=== PATIENT | male | born 1950 | race Caucasian/White ===

== ENCOUNTER 2025-02-21 01:48 | Day surgery (SDC) | payer MEDICARE, SELFPAY ==
--- OUTSIDE RECORDS SUMMARY | 2024-05-01 04:00 | XMS_ITS ---
Author Organization [facility] dicine Address [address] [place] [address] Care Team Providers Care Slitting And Shipping Supervisor Name Role Phone Dr. Martha Gifford Primary Care Provider [phone] Migration, Provider Unavailable Unavailable Allergies Allergen (clinical drug ingredient) Drug/Non Drug Allergy documented on EMR Reaction Allergy Type Onset Date Status ezetimibe Zetia Unknown Drug Allergy 02/12/2021 Active Penicillin Unknown Drug Allergy 02/12/2021 Activ e REASON FOR VISIT EMR-Victor Hugo Medications Medication SIG (Take, Route, Frequency, Duration) Notes Start Date End Date Status Niacin 500 MG Tablet 3 Oral every day; Duration: 0 02/13/2021 Active Krill Oil 1,358-092-56-50 mg Capsule 1 Oral two times a day; Duration: 0 *Pick strength-form from [employer] for eRX* 02/13/2021 Active Lisinopril 20 MG Tablet 1 Oral every day; Duration: 90 01/29/2024 07/26/2024 Active Carvedilol 6.25 MG Tablet Oral; Duration: 90 04/27/2024 07/25/2024 Active Multi-Vitamin - Tablet 1 Oral every day; Duration: 0 02/13/2021 Active Spiriva Respimat inhalation; Duration: 0 *Pick strength-form from [email or web address] for eRX* 08/14/2021 Active Ozempic (2 MG/DOSE) 8 MG/3ML Solution Pen-injector Subcutaneous; Duration: 84 04/22/2024 10/06/2024 Active Fluticasone Propionate 50 MCG/ACT Suspension 1 Nasal two times a day; Duration: 30 04/08/2024 07/06/2024 Active Aspirin Adult Low Strength 81 MG Tablet Delayed Release 1 Oral every day; Duration: 0 02/13/2021 Active Simvastatin 20 MG Tablet 1 Oral every day; Duration: 90 04/22/2024 10/18/2024 Active Social History Social History Additional Details Category Social Info Options Details Migrated Social History Migrated Social History Marital status: Encounters Encounter Location Date Provider Diagnosis [facility] [address] [place] [address] 05/01/2024 Provider Migration Plan Of Treatment Next Appt Details Provider Name:Dr. Martha bobby, 03/06/2025 01:30:00 PM, [address], [place], [address], [phone] Progress Notes * Leonel MACARIO LDOB:1950 (75 yo M)Acc No.[id number]:05/01/2024 Patient: Areli DEUTSCHLeonel Stephens Daniel :1950 A ge:74 Y S ex:Male Address:[address] [place] [id number] Subjective: * Chief Complaints: * E MR-Victor Hugo * Surgical History: appendectomy 09/2011 * Social History: M igrated Social History: M igrated Social History: Marital status:. * Medications: T akingLisinopril 20 MG Tablet 1 Oral every day , stop date 07/26/2024Niacin 500 MG Tablet 3 Oral every day Spiriva Respimat inhalation , Notes to Pharmacist: *Pick strength-form from [employer] for eRX*Fluticasone Propionate 50 MCG/ACT Suspension 1 Nasal two times a day , stop date 07/06/2024Simvastatin 20 MG Tablet 1 Oral every day , stop date 10/18/2024spirin Adult Low Strength 81 MG Tablet Delayed Release 1 Oral every day Carvedilol 6.25 MG Tablet Oral , stop date 07/25/2024Multi-Vitamin - Tablet 1 Oral every day Krill Oil 1,688-029-81-50 mg Capsule 1 Oral two times a day , Notes to Pharmacist: *Pick strength-form from [employer] for eRX*Ozempic (2 MG/DOSE) 8 MG/3ML Solution Pen-injector Subcutaneous , stop date 10/06/2024Taking Lisinopril 20 MG Tablet 1 Oral every day , stop date 07/26/2024Taking Niacin 500 MG Tablet 3 Oral every day Taking Spiriva Respimat inhalation , Notes to Pharmacist: *Pick strength-form from [facility] for eRX*Taking Fluticasone Propionate 50 MCG/ACT Suspension 1 Nasal two times a day , stop date 07/06/2024Taking Simvastatin 20 MG Tablet 1 Oral every day , stop date 10/18/2024Taking Aspirin Adult Low Strength 81 MG Tablet Delayed Release 1 Oral every day Taking Carvedilol 6.25 MG Tablet Oral , stop date 07/25/2024Taking Multi-Vitamin - Tablet 1 Oral every day Taking Krill Oil 1,587-643-73-50 mg Capsule 1 Oral two times a day , Notes to Pharmacist: *Pick strength-form from [facility] for eRX*Taking Ozempic (2 MG/DOSE) 8 MG/3ML Solution Pen-injector Subcutaneous , stop date 10/06/2024 * Allergies: Z etia: Allergy - Onset Date 02/12/2021enicillin: Allergy - Onset Date 02/12/2021 Objective: Past Vitals:* 06/15/2023 BP: 124/74 mm Hg, HR: 94 /mi n, Oxygen sat %: 98 %, Wt: 178.38 lbs, Wt-k.91 kg * 02/12/2023 BP: 112/70 mm Hg, HR: 102 /m in, Oxygen sat %: 97 %, Wt: 181.00 lbs, Wt-k.10 kg * * Date:
[2025-02-20 16:03] VITALS: BMI 27.4
[2025-02-21] VITALS (8 sets, daily range): BP systolic 134–189; BP diastolic 82–111; PULSE 84–105; RESP 12–20; TEMP 36.8; O2SAT 94–100; BMI 27.4
--- OUTSIDE RECORDS SUMMARY | 2025-02-21 01:51 | XMS_ITS | Patient Health Record ---
Author Organization [facility] Address [address] [place] [address] Care Team Providers Care Voip Network Technician Name Role Phone Dr. Martha Gifford Primary Care Provider [phone] Juany Castillo Unavailable [phone] Migration, Provider Unavailable Unavailable Allergies Allergen (clinical drug ingredient) Drug/Non Drug Allergy documented on EMR Reaction Allergy Type Onset Date Status ezetimibe Zetia Unknown Drug Allergy 02/12/2021 Active Penicillin Unknown Drug Allergy 02/12/2021 Activ e Results Component Value Reference Range Flag Notes Hemoglobin A1c {Glycosylated } Reviewed date:03/04/2024 12:00:00 AM Interpretation: Performing Lab: Notes/Report: eAvg Glucose 157 mg/dL Hemoglobin A1c 7.1 % Magnesium Reviewed date:03/04/2024 12:00:00 AM Interpretation: Performing Lab: Notes/Report: Magnesium Lvl 1.5 mg/dL PSA, Diagnostic Reviewed date:03/04/2024 12:00:00 AM Interpretation: Performing Lab: Notes/Report: PSA Total 4.67 ng/mL Patient Health Questionnaire (PHQ9) Reviewed date:03/12/2024 12:00:00 AM Interpretation: Performing Lab: Notes/Report: Feeling bad about yourself or that you are a failure or have let yourself or your family down 0 Feeling down, depressed, or hopeless 0 Feeling tired or having little energy 1 If you checked off any problems, how difficult Not difficult at all have these problems made it for you to do your work, take care of things at home, or get along with other people? 0 Little interest or pleasure in doing things 0 Moving or speaking so slowly that other people could have noticed or the opposite being so figety or restless that you have been moving around a lot more than usual 0 Poor appetite or overeating 0 Thoughts that you would be better off , or of hurting yourself 0 Trouble concentrating on things, such as reading the newspaper or watching television 0 Trouble falling or staying asleep, or sleeping too much 0 Outreach UA POC Reviewed date:04/13/2024 12:00:00 AM Interpretation: Performing Lab: Notes/Report: UA Appear Turbid UA Bili Negative UA Blood Trace-intact UA Color Yellow UA Glucose Negative UA Ketones Trace UA Leuk Est 1+ UA Nitrite Positive UA Perform Location [place]CT [place] UA pH 5.5 UA Protein 1+ UA Spec Grav 1.025 UA Urobilinogen 0.2 Urine Culture Reviewed date:04/13/2024 12:00:00 AM Interpretation: Performing Lab: Notes/Report: C Urine See Below Hemoglobin A1c {Glycosylated } Reviewed date:09/26/2024 10:34:27 PM Interpretation: Performing Lab: Notes/Report: Test Performed by: [place] [address] Geropsychologist: Dante Gomez DO Hemoglobin A1c 7.3 <=6.4 % H Hemoglobin A1C < 5.7% = Normal 5.7-6.4% = Increased risk for future diabetes >=6.5% = Diabetes eAvg Glucose 163 <=117 mg/dL H eAG Reference Range <117 mg/dL = Normal 117-137 mg/dL = Increased Risk For Future Diabetes >137 mg/dL = Diabetes Vitamin D 25 Hydroxy Reviewed date:09/26/2024 10:34:27 PM Interpretation: Performing Lab: Notes/Report: Test Performed by: [place] [address] Geropsychologist: Dante Gomez DO Vitamin D 25 OH 34 30-100 ng/mL Vitamin D25 Interpretation: Deficient: <= 20 ng/mL Insufficient: 21-29 ng/mL Sufficient: 30-100 ng/mL Upper Safety Limit: >100 ng/mL T4 Free Reviewed date:09/26/2024 10:34:27 PM Interpretation: Performing Lab: Notes/Report: Test Performed by: [facility] [address] [place] [id number] Geropsychologist: Dante Gomez, T4 Free 0.87 0.60-1.70 ng/dL CBC w Auto Diff Reviewed date:09/26/2024 10:34:27 PM Interpretation: Performing Lab: Notes/Report: Test Performed by: [facility] [place] [id number] Geropsychologist: Dante Gomez DO WBC 7.6 4.0-11.7 K/mcL RBC 4.55 4.28-5.56 x10*6/mcL Hgb 13.2 13.0-17.0 g/dL Hct 39.3 38.1-48.9 % MCV 86.4 83.4-98.1 fL MCH 29.1 27.0-34.2 pg MCHC 33.7 31.8-35.3 g/dL RDW 13.1 12.0-16.4 % Platelets 311 149-393 K/mcL MPV 9.4 7.0-11.0 fL Neutro Auto 66.3 45.3-79.0 % Lymph Auto 20.4 11.8-45.9 % [place] Auto 4.5 4.4-12.0 % Eosinophil Auto 7.9 0.0-6.3 % H Basophil Auto 0.9 0.2-1.6 % Neutro Absolute 5.1 2.4-8.4 x10*3/mcL Lymph Absolute 1.6 0.8-3.7 x10*3/mcL [place] Absolute 0.3 0.3-1.1 x10*3/mcL Eos Absolute 0.6 0.0-0.5 x10*3/mcL H Baso Absolute 0.1 0.0-0.1 x10*3/mcL Comprehensive Metabolic Pane l Reviewed date:09/26/2024 10:34:27 PM Interpretation: Performing Lab: Notes/Report: Test Performed by: [facility] [place] [id number] Geropsychologist: Dante Gomez DO Glucose Lvl 156 74-109 mg/dL H ADA risk stratification for diabetes <100 mg/dL = Normal 100-125 mg/dL = Increased risk for future diabetes >=126 mg/dL = Diabetes, if on more than one testing occasion BUN 20 7-25 mg/dL Creatinine Lvl 0.94 0.70-1.30 mg/dL eGFR CKD-EPI 85 >=90 mL/min/1.73 m2 L The CKD-EPI equation is validated in individuals 18 years of age and older. It is less accurate in patients with extremes of muscle mass, restriction of dietary protein, ingestion of creatine, extra-renal metabolism of creatinine, or treatment with medications that affect renal tubular creatinine secretion. GFR Categories in Chronic Kidney Disease (CKD) GFR GFR (mL/min/1.73 Category: square meters): Interpretation: G1 90 or greater Normal or high* G2 60-89 Mild decrease* G3a 45-59 Mild to moderate decrease G3b 30-44 Moderate to severe decrease G4 15-29 Severe decrease G5 14 or less Kidney failure *In the absence of evidence of kidney damage, neither GFR category G1 nor G2 fulfill the criteria for CKD (Kidney Int Suppl 2013;3:1-150) Calcium Lvl 10.3 8.6-10.3 mg/dL Sodium Lvl 138 136-145 mmol/L Potassium Lvl 4.7 3.5-5.1 mmol/L Chloride Lvl 103 98-107 mmol/L CO2 28 21-31 mmol/L Anion Gap 6.7 <=16.0 mmol/L Alk Phos 80 34-104 unit/L Bilirubin Total 0.4 0.3-1.0 mg/dL Albumin Lvl 4.1 3.5-5.2 g/dL Protein Total 6.4 6.4-8.9 g/dL Albumin/Globulin Ratio 1.7 1.1-2.5 ALT 14 7-52 unit/L AST 13 13-39 unit/L Lipid Panel {Chol, Trig, HDL , LDL} Reviewed date:09/26/2024 10:34:27 PM Interpretation: Performing Lab: Notes/Report: Test Performed by: Lola [address] [address] Geropsychologist: Dante Gomez DO Cholesterol Total 144 <=199 mg/dL Triglycerides 297 0-149 mg/dL H Triglyceride Reference Ranges: <150 mg/dL Normal 150 - 199 mg/dL Borderline High 200 - 499 mg/dL High >=500 mg/dL Very High LDL 46 <=100 mg/dL LDL Optimal: <100 Near or above optimal: 100-129 Borderline high: 130-159 High: 160-189 Very high: >=190 Coronary heart disease risk factors should be considered when determining LDL goals. Please refer to ATPIII guidelines for further information. If LDL is not calculated, please call the lab to add on the direct LDL methodology, if desired. HDL 39 23-92 mg/dL Non HDL Cholesterol 105 <=130 mg/dL Chol/HDL 4 0-5 Coronary Risk 27 Coronary Risk Factor - Male Dangerous Risk: <7 % High Risk: 7-15 % Average Risk: 15-25 % Below Average Risk: 25-37 % Coronary Risk Factor - Female Dangerous Risk: <12 % High Risk: 12-18 % Average Risk: 18-27 % Below Average Risk: 27-40 % Magnesium Reviewed date:09/26/2024 10:34:27 PM Interpretation: Performing Lab: Notes/Report: Test Performed by: [place] [address] Geropsychologist: Dante Gomez DO Magnesium Lvl 1.4 1.6-2.4 mg/dL L Thyroid Stimulating Hormone Reviewed date:09/26/2024 10:34:27 PM Interpretation: Performing Lab: Notes/Report: Test Performed by: [place] [id number] Geropsychologist: Dante Gomez DO TSH 1.85 0.45-5.33 mcIU/mL Vitamin B12 Reviewed date:09/26/2024 10:34:27 PM Interpretation: Performing Lab: Notes/Report: Test Performed by: [place] [address] Geropsychologist: Dante Gomez DO Vitamin B12 Lvl 245 180-914 pg/mL Vitamin B12 Interpretation: Normal Range: 180-914 pg/mL Indeterminate: 140-180 pg/mL Deficient: <140 pg/mL Hemoglobin A1c {Glycosylated } Reviewed date:12/26/2024 08:04:09 PM Interpretation: Performing Lab: Notes/Report: Test Performed by: [place] [id number] Geropsychologist: Dante Gomez DO Hemoglobin A1c 7.0 <=6.4 % H Hemoglobin A1C < 5.7% = Normal 5.7-6.4% = Increased risk for future diabetes >=6.5% = Diabetes eAvg Glucose 154 <=117 mg/dL H eAG Reference Range <117 mg/dL = Normal 117-137 mg/dL = Increased Risk For Future Diabetes >137 mg/dL = Diabetes Vitamin D 25 Hydroxy Reviewed date:12/26/2024 08:04:09 PM Interpretation: Performing Lab: Notes/Report: Test Performed by: [place] [address] Geropsychologist: Dante Gomez DO Vitamin D 25 OH 35 30-100 ng/mL Vitamin D25 Interpretation: Deficient: <= 20 ng/mL Insufficient: 21-29 ng/mL Sufficient: 30-100 ng/mL Upper Safety Limit: >100 ng/mL T4 Free Reviewed date:12/26/2024 08:04:09 PM Interpretation: Performing Lab: Notes/Report: Test Performed by: [place] [address] Geropsychologist: Dante Gomez DO T4 Free 0.96 0.60-1.70 ng/dL CBC w Auto Diff Reviewed date:12/26/2024 08:04:09 PM Interpretation: Performing Lab: Notes/Report: mbi #[id number] Test Performed by: [place] [address] Geropsychologist: Dante Gomez DO WBC 6.7 4.0-11.7 K/mcL RBC 4.54 4.28-5.56 x10*6/mcL Hgb 13.4 13.0-17.0 g/dL Hct 39.4 38.1-48.9 % MCV 86.8 83.4-98.1 fL MCH 29.5 27.0-34.2 pg MCHC 34.0 31.8-35.3 g/dL RDW 13.3 12.0-16.4 % Platelets 288 149-393 K/mcL MPV 9.2 7.0-11.0 fL Neutro Auto 60.5 45.3-79.0 % Lymph Auto 24.6 11.8-45.9 % [place] Auto 6.0 4.4-12.0 % Eosinophil Auto 8.2 0.0-6.3 % H Basophil Auto 0.7 0.2-1.6 % Neutro Absolute 4.1 2.4-8.4 x10*3/mcL Lymph Absolute 1.7 0.8-3.7 x10*3/mcL [place] Absolute 0.4 0.3-1.1 x10*3/mcL Eos Absolute 0.6 0.0-0.5 x10*3/mcL H Comprehensive Metabolic Pane l Reviewed date:12/26/2024 08:04:09 PM Interpretation: Performing Lab: Notes/Report: Test Performed by: [place] [address] Geropsychologist: Dante Gomez DO Glucose Lvl 138 74-109 mg/dL H ADA risk stratification for diabetes <100 mg/dL = Normal 100-125 mg/dL = Increased risk for future diabetes >=126 mg/dL = Diabetes, if on more than one testing occasion BUN 17 7-25 mg/dL Creatinine Lvl 0.84 0.70-1.30 mg/dL eGFR CKD-EPI >90 >=90 mL/min/1.73 m2 The CKD-EPI equation is validated in individuals 18 years of age and older. It is less accurate in patients with extremes of muscle mass, restriction of dietary protein, ingestion of creatine, extra-renal metabolism of creatinine, or treatment with medications that affect renal tubular creatinine secretion. GFR Categories in Chronic Kidney Disease (CKD) GFR GFR (mL/min/1.73 Category: square meters): Interpretation: G1 90 or greater Normal or high* G2 60-89 Mild decrease* G3a 45-59 Mild to moderate decrease G3b 30-44 Moderate to severe decrease G4 15-29 Severe decrease G5 14 or less Kidney failure *In the absence of evidence of kidney damage, neither GFR category G1 nor G2 fulfill the criteria for CKD (Kidney Int Suppl 2013;3:1-150) Calcium Lvl 10.6 8.6-10.3 mg/dL H Sodium Lvl 138 136-145 mmol/L Potassium Lvl 5.0 3.5-5.1 mmol/L Chloride Lvl 102 98-107 mmol/L CO2 29 21-31 mmol/L Anion Gap 6.6 <=16.0 mmol/L Alk Phos 70 34-104 unit/L Bilirubin Total 0.5 0.3-1.0 mg/dL Albumin Lvl 4.3 3.5-5.2 g/dL Protein Total 6.2 6.4-8.9 g/dL L Albumin/Globulin Ratio 2.3 1.1-2.5 ALT 18 7-52 unit/L AST 16 13-39 unit/L Lipid Panel {Chol, Trig, HDL , LDL} Reviewed date:12/26/2024 08:04:09 PM Interpretation: Performing Lab: Notes/Report: Test Performed by: [place] [address] Geropsychologist: Dante Gomez DO Cholesterol Total 128 <=199 mg/dL Triglycerides 200 0-149 mg/dL H Triglyceride Reference Ranges: <150 mg/dL Normal 150 - 199 mg/dL Borderline High 200 - 499 mg/dL High >=500 mg/dL Very High LDL 53 <=100 mg/dL LDL Optimal: <100 Near or above optimal: 100-129 Borderline high: 130-159 High: 160-189 Very high: >=190 Coronary heart disease risk factors should be considered when determining LDL goals. Please refer to ATPIII guidelines for further information. If LDL is not calculated, please call the lab to add on the direct LDL methodology, if desired. HDL 35 23-92 mg/dL Non HDL Cholesterol 93 <=130 mg/dL Chol/HDL 4 0-5 Magnesium Reviewed date:12/26/2024 08:04:09 PM Interpretation: Performing Lab: Notes/Report: Test Performed by: [address] [address] Geropsychologist: Dante Gomez DO Magnesium Lvl 1.4 1.6-2.4 mg/dL L Thyroid Stimulating Hormone Reviewed date:12/26/2024 08:04:09 PM Interpretation: Performing Lab: Notes/Report: Test Performed by: [address] [address] Geropsychologist: Dante Gomez DO TSH 1.93 0.45-5.33 mcIU/mL Vitamin B12 Reviewed date:12/26/2024 08:04:09 PM Interpretation: Performing Lab: Notes/Report: Test Performed by: [address] [address] Geropsychologist: Dante Gomez DO Vitamin B12 Lvl 388 180-914 pg/mL Vitamin B12 Interpretation: Normal Range: 180-914 pg/mL Indeterminate: 140-180 pg/mL Deficient: <140 pg/mL CBC w/ Diff Reviewed date:03/04/2024 12:00:00 AM Interpretation: Performing Lab: Notes/Report: Baso Absolute 0.1 x10*3/mcL Basophil Auto 0.8 % Eos Absolute 0.7 x10*3/mcL Eosinophil Auto 8.6 % Hct 43.9 % Hgb 14.5 g/dL Lymph Absolute 1.8 x10*3/mcL Lymph Auto 22.2 % MCH 29.4 pg MCHC 33.1 g/dL MCV 88.9 fL [place] Absolute 0.4 x10*3/mcL [place] Auto 5.0 % MPV 9.1 fL Neutro Absolute 5.3 x10*3/mcL Neutro Auto 63.4 % Platelets 330 K/mcL RBC 4.94 x10*6/mcL RDW 12.9 % WBC 8.3 K/mcL Comprehensive Metabolic Pane l Reviewed date:03/04/2024 12:00:00 AM Interpretation: Performing Lab: Notes/Report: Albumin Lvl 4.4 g/dL Albumin/Globulin Ratio 1.7 Alk Phos 75 unit/L ALT 25 unit/L ANION GAP 6.8 mmol/L AST 20 unit/L Bilirubin Total 0.5 mg/dL BUN 17 mg/dL Calcium Lvl 11.0 mg/dL Chloride Lvl 99 mmol/L CO2 31 mmol/L Creatinine Lvl 0.85 mg/dL eGFR CKD-EPI >90 mL/min/1.73 m2 Glucose Lvl 143 mg/dL Potassium Lvl 5.2 mmol/L Protein Total 6.9 g/dL Sodium Lvl 137 mmol/L Lipid Panel {Chol, Trig, HDL , LDL} Reviewed date:03/04/2024 12:00:00 AM Interpretation: Performing Lab: Notes/Report: Chol/HDL 4 Cholesterol Total 163 mg/dL Coronary Risk 28 % HDL 45 mg/dL LDL 69 mg/dL NON HDL CHOLESTEROL 118 mg/dL Triglycerides 243 mg/dL Microalbumin Quantitative wi th Creatinine Reviewed date:03/04/2024 12:00:00 AM Interpretation: Performing Lab: Notes/Report: Creatinine Ur 51 mg/dL Mcralb/Creat Ratio 125.3 mcg/mg Microalbumin Ur 63.9 mg/L T4 Free Reviewed date:03/04/2024 12:00:00 AM Interpretation: Performing Lab: Notes/Report: T4 Free 0.85 ng/dL Thyroid Stimulating Hormone Reviewed date:03/04/2024 12:00:00 AM Interpretation: Performing Lab: Notes/Report: TSH 1.54 mcIU/mL Vitamin B12 Reviewed date:03/04/2024 12:00:00 AM Interpretation: Performing Lab: Notes/Report: Vitamin B12 Lvl 290 pg/mL Vitamin D 25 Hydroxy Reviewed date:03/04/2024 12:00:00 AM Interpretation: Performing Lab: Notes/Report: Vitamin D 25 OH 31 ng/mL Echocardiogram Reviewed date:01/23/2025 10:51:00 AM Interpretation: Performing Lab: Notes/Report: Magnesium Reviewed date:01/13/2025 12:59:32 PM Interpretation: Performing Lab: Notes/Report: Test Performed by: [place] [address] Geropsychologist: Dante Gomez DO Magnesium Lvl 1.6 1.6-2.4 mg/dL Reason For Referral No Information Medications Medication SIG (Take, Route, Frequency, Duration) Notes Start Date End Date Status Lisinopril 20 MG Tablet 1 tablet Orally Once a day; Duration: 90 days Active Carvedilol 6.25 MG Tablet 1.5 tablet Orally Twice a day; Duration: 90 days Active metFORMIN HCl ER 500 MG Tablet Extended Release 24 Hour 2 tablets Orally twice a day; Duration: 90 days 09/29/2024 Active Krill Oil 1,355-003-84-50 mg Capsule 1 Oral two times a day; Duration: 0 *Pick strength-form from [email or web address] for eRX* 02/13/2021 Active Multi-Vitamin - Tablet 1 Oral every day; Duration: 0 02/13/2021 Active Fluticasone Propionate 50 MCG/ACT Suspension SPRAY 1 SPRAY INTO EACH NOSTRIL TWICE A DAY; Duration: 90 Active Aspirin Adult Low Strength 81 MG Tablet Delayed Release 1 Oral every day; Duration: 0 02/13/2021 Active Spiriva Respimat inhalation; Duration : 0 *Pick strength-form from [email or web address] for eRX* 08/14/2021 Active Niacin 500 MG Tablet 3 Oral every day; Duration: 0 02/13/2021 Active Simvastatin 20 MG Tablet 1 tablet in the evening Orally Once a day; Duration: 90 days Active Ozempic (2 MG/DOSE) 8 MG/3ML Solution Pen-injector 2 mg Subcutaneous weekly; Duration: 84 days Active Magnesium Oxide 400 MG Tablet 1 tablet with food Orally 3 times a day; Duration: 90 days increase to BID, please update for next RF. 09/29/2024 Active Famotidine 40 MG Tablet 1 tablet Orally Once a day; Duration: 90 days 01/05/2025 Active Immunizations Vaccine Route Administration Date Status Comme nts Influenza, high dose seasonal IM Intramuscular 03/08/2024 Administered ,sourcename : N ew immunization record ,immstatus : Complete Influenza, high-dose seasonal, quadrivalent, preservative free >65 yrs Unknown 03/25/2017 Administered Source VFC Code: : Influenza, high-dose seasonal, quadrivalent, preservative free >65 yrs IM Intramuscular 03/15/2018 Administered Source VFC Code: : Influenza, high-dose seasonal, quadrivalent, preservative free >65 yrs IM Intramuscular 03/24/2019 Administered Source VFC Code: : Influenza, high-dose seasonal, quadrivalent, preservative free >65 yrs IM Intramuscular 03/14/2021 Administered ,sourcename : N ew immunization record ,immstatus : Complete Influenza, high-dose seasonal, quadrivalent, preservative free >65 yrs IM Intramuscular 03/22/2022 Administered ,sourcename : New immunization record ,immstatus : Complete Source VFC Code: : Influenza, high-dose seasonal, quadrivalent, preservative free >65 yrs IM Intramuscular 03/07/2023 Administered ,sourcename : N ew immunization record ,immstatus : Complete Influenza, quadrivalent (IIV4), split virus, 6-35 months dosage IM Intramuscular 03/26/2016 Administered Source VFC Code: : Influenza, seasonal, injectable, preservative free, 3 yrs and above IM Intramuscular 03/16/2013 Administered Source VFC Code: : Moderna Covid-19 Vaccine 1st dose IM Intramuscular 07/06/2020 Administered Source VFC Code: : Moderna Covid-19 Vaccine 1st dose Unknown 07/29/2020 Administered ,sourcename : Historical information -source unspecified Source VFC Code: : Moderna Covid-19 Vaccine 1st dose IM Intramuscular 08/03/2020 Administered Source VFC Code: : Moderna Covid-19 Vaccine 1st dose Unknown 08/24/2020 Administered ,sourcename : Historical information -source unspecified Source VFC Code: : Moderna Covid-19 Vaccine 1st dose Unknown 04/05/2021 Administered Source VFC Code: : Pfizer-Biontech Covid-19 Vaccine 1st dose IM Intramuscular 03/08/2024 Administered ,sourcename : N ew immunization record ,immstatus : Complete Pneumococcal conjugate PCV 13 IM Intramuscular 03/26/2016 Administered Source VFC Code: : Pneumococcal polysaccharide PPV23 IM Intramuscular 08/22/2013 Administered Source VFC Code: : Pneumococcal polysaccharide PPV23 IM Intramuscular 02/16/2020 Administered Source VFC Code: : RSV-MAb (Respiratory syncytial virus immune globulin) IM Intramuscular 05/20/2023 Administered ,sourcename : New immunization record ,immstatus : Complete Tdap Unknown 02/20/2014 Administered ,sourcename : Historical information -from other registry Source VFC Code: : Tdap IM Intramuscular 03/09/2024 Administered ,sourc ename : New immunization record ,immstatus : Complete Zoster Unknown 06/27/2014 Administered ,sourcename : Historical information -from other registry Source VFC Code: : Zoster IM Intramuscular 08/06/2022 Administered ,sourc ename : New immunization record ,immstatus : Complete Zoster IM Intramuscular 02/12/2023 Administered ,sourc ename : New immunization record ,immstatus : Complete Social History Tobacco Use: Social History Observation Description Date Details (start date - stop date) Never Smoker NA - NA Social History Household: Social Info Question Answer Notes Household Marital status: Tobacco Use: Social Info Question Answer Notes Tobacco Control (Standard) Tobacco use: Nonsmoker Additional Findings: Tobacco non-user Current no nsmoker Additional Details Category Social Info Options Details Drug/Alcohol: Do you drink alcohol? 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) 08/07/19 Active confirmed Problem Type II diabetes mellitus without complication (403336772) Type 2 diabetes mellitus without complications (E11.9) Active confirmed Problem Vitamin B deficiency (98049815) Deficiency of other specified B group vitamins (E53.8) 06/23/20 23 Active confirmed Problem Mixed hyperlipidemia (963465714) Mixed hyperlipidemia (E78.2) 02/13/20 22 Active confirmed Problem Hyperlipidemia (41627242) Hyperlipidemia, unspecified (E78.5) 02/25/20 23 Active confirmed Problem Hypomagnesemia (358042424) Hypomagnesemia (E83.42) 03/09/20 24 Active confirmed Problem Hypercalcemia (72189472) Hypercalcemia (E83.52) 02/17/20 23 Active confirmed Problem Male erectile disorder (295321049) Male erectile disorder (F52.21) 02/25/20 23 Active confirmed Problem Essential hypertension (59557896) Essential (primary) hypertension (I10) 02/14/20 21 Active confirmed Problem Aortic valve disorder (0985336) Nonrheumatic aortic (valve) stenosis (I35.0) 03/09/20 24 Active confirmed Problem Ventricular premature depolarization (844311027) Ventricular premature depolarization (I49.3) 06/15/19 Active confirmed Problem Cardiac arrhythmia (246353729) Cardiac arrhythmia, unspecified (I49.9) 02/13/20 23 Active confirmed Problem Allergic rhinitis (76979860) Allergic rhinitis, unspecified (J30.9) 02/14/20 21 Active confirmed Problem Gastro-esophageal reflux disease without esophagitis (556051216) Gastro-esophageal reflux disease without esophagitis (K21.9) 02/13/20 22 Active confirmed Problem Polyp of colon (68285037) Polyp of colon (K63.5) 02/13/20 22 Active confirmed Problem Localized, primary osteoarthritis of the hand (111248681) Primary osteoarthritis, 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2) 08/15/19 22 Active confirmed Problem Amnesia (04926848) Other amnesia (R41.3) 08/07/19 23 Active confirmed Problem Proteinuria (67521934) Proteinuria, unspecified (R80.9) 08/07/19 23 Active confirmed Problem Adult health examination (193519301) Encounter for general adult medical examination without abnormal findings (Z00.00) 02/25/20 23 Active confirmed Problem Screening for malignant neoplasm of colon (465652728) Encounter for screening for malignant neoplasm of colon (Z12.11) 02/13/20 22 Active confirmed Problem History of asbestos exposure (221268403) Contact with and (suspected) exposure to asbestos (Z77.090) 03/28/20 21 Active confirmed Problem Elevated PSA (623099942) Elevated prostate specific antigen [PSA] (R97.20) 08/15/19 22 Active confirmed Problem Body mass index 25-29 - overweight (696667830) Body mass index (BMI) 28.0-28.9, adult (Z68.28) 02/25/20 23 Active confirmed Problem Enlarged prostate (320261065) Enlarged prostate without lower urinary tract symptoms (N40.0) 02/25/20 23 Active confirmed Problem Vitamin D deficiency (47675303) Vitamin D deficiency (E55.9) Active confirmed Problem Essential hypertension (70647384) Essential hypertension (I10) Active confirmed Problem Allergic rhinitis (12008582) Chronic allergic rhinitis (J30.9) Active confirmed Problem Polyneuropathy due to type 2 diabetes mellitus (122130706) 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) Active confirmed Problem Grade I diastoli c dysfunction (I51.89) Active confirmed Echo 2023 Problem Aortic valve disorder (3625462) Moderate aortic stenosis (I35.0) Active confirmed Echo 2023 Vital Signs Heart Rate 94 /min 01/05/2025 Temperature 98.0 degrees Fahrenheit 01/05/2025 Respiratory Rate 18 /min 09/29/2024 Blood pressure diastolic 82 mm Hg 01/05/2025 Height-cm 168.15 cm 01/05/2025 Oximetry 97 % 01/05/2025 Weight-kg 79.42 kg 01/05/2025 Height 66.20 in 01/05/2025 Blood pressure systolic 138 mm Hg 01/05/2025 Weight 175.1 lbs 01/05/2025 BMI 28.09 kg/m2 01/05/2025 Encounters Encounter Location Date Provider Diagnosis [address] [address] 03/03/2024 Provider Migration Hyperlipidemia, unspecified E78.5 ; Elevated prostate specific antigen [PSA] R97.20 ; Gastro-esophageal reflux disease without esophagitis K21.9 ; Type 2 diabetes mellitus with other diabetic kidney complication E11.29 ; Essential (primary) hypertension I10 ; Encounter for general adult medical examination without abnormal findings Z00.00 and Deficiency of other specified B group vitamins E53.8 [place] [phone] 03/08/2024 Dr. Martha Gifford Encounter for immunization Z23 [address] [address] 03/09/2024 Dr. Martha Gifford Essential (primary) hypertension I10 ; Hypercalcemia E83.52 ; Elevated prostate specific antigen [PSA] R97.20 ; Encounter for general adult medical examination without abnormal findings Z00.00 ; Mixed hyperlipidemia E78.2 ; Cardiac murmur, unspecified R01.1 ; Encounter for immunization Z23 ; Type 2 diabetes mellitus with other diabetic kidney complication E11.29 ; Hypomagnesemia E83.42 ; Deficiency of other specified B group vitamins E53.8 and Nonrheumatic aortic (valve) stenosis I35.[address] [address] 04/08/2024 Dr. Martha Gifford Allergic rhinitis, unspecified J30.9 ; Cough, unspecified R05.9 ; Other specified symptoms and signs involving the circulatory and respiratory systems R09.89 and Acute prostatitis N41.[address] [address] 09/29/2024 Dr. 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 ; Essential (primary) hypertension I10 ; Vitamin B12 deficiency E53.8 ; Hypomagnesemia E83.42 ; Dizziness R42 ; Chronic allergic rhinitis J30.9 ; Moderate aortic stenosis I35.0 and Grade I diastolic dysfunction I51.[address] [address] 01/05/2025 Juany Castillo Type 2 diabetes mellitus with other diabetic kidney complication E11.29 ; Aortic valve stenosis, etiology of cardiac valve disease unspecified I35.0 ; Essential hypertension I10 ; Mixed hyperlipidemia E78.2 ; Allergic rhinitis, unspecified J30.9 ; Hypomagnesemia E83.42 and Gastro-esophageal reflux disease without esophagitis K21.[address] [address] 04/30/2024 Provider Migration [address] [address] 05/01/2024 Provider Migration [address] [address] 09/26/2024 Dr. Martha Gifford Hypomagnesemia E83.42 ; Hyperlipidemia, unspecified E78.5 ; Essential (primary) hypertension I10 ; Type 2 diabetes mellitus without complications E11.9 ; Deficiency of other specified B group vitamins E53.8 and Other intermediate project manager (current) drug therapy Z79.[address] [address] 12/26/2024 Juany Castillo Essential (primary) hypertension I10 ; Gastro-esophageal reflux disease without esophagitis K21.9 ; Mixed hyperlipidemia E78.2 ; Type 2 diabetes mellitus with other diabetic kidney complication E11.29 ; Vitamin B12 deficiency E53.8 and Vitamin D deficiency E55.[address] [address] 12/26/2024 Juany Castillo Assessments Encounter Date Diagnosis (ICD Code) Assessment Notes Treatment Notes Treatment Clinical Notes Section Notes 04/08/2024 Allergic rhinitis, unspecified (ICD-10 - J30.9) 04/08/2024 Acute prostatitis (ICD-10 - N41.0) 04/08/2024 Other specified symptoms and signs involving the circulatory and respiratory systems (ICD-10 - R09.89) 04/08/2024 Cough, unspecified (ICD-10 - R05.9) 03/09/2024 Type 2 diabetes mellitus with other diabetic kidney complication (ICD-10 - E11.29) 03/09/2024 Deficiency of other specified B group vitamins (ICD-10 - E53.8) 03/09/2024 Mixed hyperlipidemia (ICD-10 - E78.2) 03/09/2024 Hypomagnesemia (ICD-10 - E83.42) 03/09/2024 Hypercalcemia (ICD-10 - E83.52) 03/09/2024 Essential (primary) hypertension (ICD-10 - I10) 03/09/2024 Nonrheumatic aortic (valve) stenosis (ICD-10 - I35.0) 03/09/2024 Cardiac murmur, unspecified (ICD-10 - R01.1) 03/09/2024 Encounter for general adult medical examination without abnormal findings (ICD-10 - Z00.00) 03/09/2024 Encounter for immunization (ICD-10 - Z23) 03/09/2024 Elevated prostate specific antigen [PSA] (ICD-10 - R97.20) 03/08/2024 Encounter for immunization (ICD-10 - Z23) 01/05/2025 Type 2 diabetes mellitus with other diabetic kidney complication (ICD-10 - E11.29) - Type 2 diabetes mellitus, A1c improved from 7.3 to 7. - Patient has lost 7 lbs since last March. - Continue current Metformin and Ozempic. No changes recommended at this time. - Follow up with primary care as scheduled. 09/29/2024 Hyperlipidemia, unspecified (ICD-10 - E78.5) 09/29/2024 DM type 2 with diabetic peripheral neuropathy (ICD-10 - E11.42) 12/26/2024 Essential (primary) hypertension (ICD-10 - I10) 01/05/2025 Aortic valve stenosis, etiology of cardiac valve disease unspecified (ICD-10 - I35.0) -Mod/severe on last echo in 2023. Follows with cardiology every 6 months. Grade 3 murmur noted. Denies any cardiac limitations. Order was faxed for echo in September 2024, and have advised him to call and schedule it at his convenience. 09/26/2024 Hypomagnesemia (ICD-10 - E83.42) 03/03/2024 Type 2 diabetes mellitus with other diabetic kidney complication (ICD-10 - E11.29) 03/03/2024 Deficiency of other specified B group vitamins (ICD-10 - E53.8) 03/03/2024 Hyperlipidemia, unspecified (ICD-10 - E78.5) 03/03/2024 Essential (primary) hypertension (ICD-10 - I10) 03/03/2024 Gastro-esophageal reflux disease without esophagitis (ICD-10 - K21.9) 03/03/2024 Encounter for general adult medical examination without abnormal findings (ICD-10 - Z00.00) 03/03/2024 Elevated prostate specific antigen [PSA] (ICD-10 - R97.20) 09/26/2024 Hyperlipidemia, unspecified (ICD-10 - E78.5) 12/26/2024 Gastro-esophageal reflux disease without esophagitis (ICD-10 - K21.9) 01/05/2025 Essential hypertension (ICD-10 - I10) MEDICATIONS: No change to current medication regimen. Condition Stable.RECOMMEND ATIONS: adherence to a healthy diet and reduction of dietary salt intake. FOLLOWUP: Schedule a follow-up visit in 6 months 09/29/2024 Essential (primary) hypertension (ICD-10 - I10) 09/29/2024 Vitamin B12 deficiency (ICD-10 - E53.8) 12/26/2024 Mixed hyperlipidemia (ICD-10 - E78.2) 09/26/2024 Essential (primary) hypertension (ICD-10 - I10) 01/05/2025 Mixed hyperlipidemia (ICD-10 - E78.2) Trigs up some. Will continue atorvastatin and Krill oil MANAGEMENT: Condition stable. Continue same treatment plan. RECOMMENDATIONS: Maintain a regular exercise program. Reduce the amount of cholesterol and saturated fat in your diet. (Limiting red meats and dairy)FOLLOWUP: Return to clinic in 3-6 months for recheck. 12/26/2024 Type 2 diabetes mellitus with other diabetic kidney complication (ICD-10 - E11.29) 09/26/2024 Type 2 diabetes mellitus without complications (ICD-10 - E11.9) 09/29/2024 Hypomagnesemia (ICD-10 - E83.42) 01/05/2025 Allergic rhinitis, unspecified (ICD-10 - J30.9) -Takes an OTC allergy medication daily and uses Flonasa as needed. He also uses Spiriva as needed, He said it is for allergies. 12/26/2024 Vitamin B12 deficiency (ICD-10 - E53.8) 09/29/2024 Dizziness (ICD-10 - R42) 09/26/2024 Deficiency of other specified B group vitamins (ICD-10 - E53.8) 01/05/2025 Hypomagnesemia (ICD-10 - E83.42) -Mag was 1.4 last week. Magnesium increased from BID to TID and held pantoprazole for a week. Recheck mag level today. 09/26/2024 Other penitentiary (current) drug therapy (ICD-10 - Z79.899) 09/29/2024 Chronic allergic rhinitis (ICD-10 - J30.9) chronic allergy season, eos are high on CBC, patient reports flairing of allergies. 12/26/2024 Vitamin D deficiency (ICD-10 - E55.9) 01/05/2025 Gastro-esophageal reflux disease without esophagitis (ICD-10 - K21.9) -With holding pantoprazole he has had some GERD especially over night. Will stop pantoprazole completely and start famotidine. 09/29/2024 Moderate aortic stenosis (ICD-10 - I35.0) Echo 202309/29/2024 Grade I diastolic dysfunction (ICD-10 - I51.89) Echo 202309/29/2024 Other Repeat BMP and Mag in 1 month Low Magnesium - Magnesium level is low at 1.4, which requires treatment. - Increase magnesium oxide to 400 mg twice a day. Prescription for a 90-day supply to be sent to [facility]. Follow-up lab for magnesium and kidney function in one month. - Risks and side effects: Potential for heart rhythm issues and dizziness if magnesium remains low. Ensure adequate hydration to help with absorption and reduce dizziness. Low B12 - B12 level is low at 245, which may cause tiredness, numbness, tingling, and taste issues. - Recommend taking 2000 mcg of B12 over the counter daily. Monitor for improvement in energy levels and symptoms. DM2 with neuropathy - A1c is at 7.3, which is above the target goal. - Encourage dietary adjustments to improve blood sugar control. Consider repeating sugar labs in three months to monitor improvement. Six-month follow-up scheduled for March 06, 2025. Discuss potential medication adjustments if no improvement is seen. Dizziness - Dizziness may be related to blood pressure drop or dehydration, rather than sugar levels. - Ensure adequate hydration, especially when consuming caffeine. Monitor for any recurring episodes and report them. Elevated PSA hx - No recent MRI or biopsy of the prostate. Biopsy planned if condition does not improve. - Continue monitoring prostate health. Follow-up with Dr. Rubalcava after returning from [place] on November 12. Discuss any new symptoms or concerns. Aortic Stenosis - moderate on 2023 Echo - Needs monitored yearly. - Last in 2023 showed moderate, possibly severe aortic stenosis and grade 1 diastolic dysfunction. Medication - No confirmed diagnosis of COPD. Spiriva inhaler may have been prescribed for bronchitis or other temporary condition. - Discontinue Spiriva inhaler use. Monitor for any respiratory symptoms and report if they occur. Will see again in 3 months in office for Diabetes check up Plan Of Treatment Next Appt Details Provider Name:Dr. Martha bobby, 03/06/2025 01:30:00 PM, [address] [place] [address], [phone], [phone] Insurance Providers Payer Name Payer Address Payer Phone Subscriber Number Group Number Insured Name Patient Relationship to Insured Coverage Start Date Coverage End Date A[employer] Medicare Advantage [address] [place] [address] [id number] Leonel Macario Self - patient is the insured Medical (General) History Medical History History ICD Code Essential (primary) hypertension I10 Mixed hyperlipidemia E78.2 Gastro-esophageal reflux disease without esophagitis K21.9 Elevated prostate specific antigen [PSA] R97.20 Type 2 diabetes mellitus with other diab etic kidney complication E11.29 Body mass index (BMI) 28.0-28.9, adult Z 68.28 Enlarged prostate without lower urinary tract symptoms N40.0 Ventricular premature depolarization I49 .3 Cardiac murmur, unspecified R01.1 Surgical History Surgery Date(Month/Year) appendectomy 09/2011
--- OUTSIDE RECORDS SUMMARY | 2025-02-21 01:51 | XMS_ITS | Clinical Summary ---
Author Organization [place] [id number] [facility] Address [address] [place] [address] Care Team Providers Care Surgical Garment Fitter Name Role Phone Martha Gifford MD Primary Care Provider Allergies Active Allergy Reactions Criticality Noted Date Comments Penicillins Swelling,Other (See comments) Low Reaction: Swelling, Reaction: Medications carvediloL (COREG) 6.25 mg tablet TAKE 1&1/2 TABS BY MOUTH TWICE DAILY 1 Active carvedilol CR (COREG CR) 10 mg 24 hr capsule 2 times daily Ac tive ezetimibe (Zetia) 10 mg tablet daily Active lisinopriL (PRINIVIL,ZESTRIL ) 20 mg tablet daily Activ e metFORMIN XR (GLUCOPHAGE XR) 500 mg 24 hr tablet TAKE 2 TABLET(S) ORAL TWO TIMES A DAY 1 Active montelukast (SINGULAIR) 10 mg tablet Take 10 mg by mouth daily 2 Active niacin 500 mg tablet daily Active simvastatin (ZOCOR) 20 mg tablet 2 Active semaglutide (OZEMPIC) 0.25 mg or 0.5 mg(2 mg/1.5 mL) pen injector injection Inject under the skin Active glimepiride (AMARYL) 2 mg tabletIndications :type 2 diabetes mellitus Take 2 mg by mouth daily before breakfast Active magnesium gluconate 200 mg tabletIndications :hypomagnesemia 200 mg Acti ve FISH OIL-DHA-EPA ORAL Take by mouth Active multivit-min/foli c/vit K/lycop (MEN'S MULTIVITAMIN ORAL) Take by mouth Active aspirin 81 mg enteric coated tablet Take 81 mg by mouth daily Active tiotropium (Spiriva with HandiHaler) 18 mcg per inhalation capsule Place 1 puff (1 capsule total) into inhaler and inhale daily 30 capsule 11 2 Active albuterol HFA (ProAir HFA) 90 mcg/actuation inhaler Inhale 2 puffs every 4 (four) hours as needed for wheezing or shortness of breath 8.5 g 5 2 Active Active Problems Problem Noted Date Diagnosed Date COPD (chronic obstructive pulmonary disease) 07/[address] 07/31/2021 Asbestos exposure Encounters Date Type Department Care Team Description 02/10/2025 Telephone [facility] Cardiology [address] [place] [address] Jitendra Burrell MD from Last 3 Months Family History Medical History Relation Name Comments Liver disease Father No Known Problems Mother Relation Name Status Comments Father Mother Social History Tobacco Use Types Packs/Day Years Used Date Smoking Tobacco: Former Smokeless Tobacco: Former Personal Safety Answer Date Recorded Getting School Help Needed Not on file 08/14 Sex and Gender Information Value Date Recorded Sex Assigned at Not on file 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 Gender Identity Not on file Sexual Orientation Not on file Obstetrics History Last Filed Vital Signs Vital Sign Reading Time Taken Comments Blood Pressure 118/78 07/18/2021 12:43 PM MACHINE VENEER REPAIRER Pulse 96 07/18/2021 12:43 PM MACHINE VENEER REPAIRER Temperature 36.3 C (97.3 F) 07/18/2021 12:43 PM MACHINE VENEER REPAIRER Respiratory Rate 18 07/18/2021 12:43 PM MACHINE VENEER REPAIRER Oxygen Saturation 97% 07/18/2021 12:43 PM MACHINE VENEER REPAIRER Inhaled Oxygen Concentration - - Weight 86.2 kg (190 lb) 07/18/2021 12:43 PM MACHINE VENEER REPAIRER Height 170.2 cm (5' 7) 07/18/2021 12:43 PM MACHINE VENEER REPAIRER Body Mass Index 29.76 07/18/2021 12:43 PM MACHINE VENEER REPAIRER Plan of Treatment Health Maintenance Due Date Last Done Comments Colon Cancer Screening-Colonoscopy 1950 Depression Screening 1950 Fall Risk Assessment 1950 Hepatitis C Screening 1950 Hepatitis B Screening 1969 Zoster Vaccine (2 of 3) 08/22/2014 06/27/2014 Abdominal Aortic Aneurysm (A AA) Screen 01/23/2016 Well Visit 65+ 01/23/2016 DTaP/Tdap/Td Vaccine (2 - Td or Tdap) 02/21/2024 02/20/2014 Covid-19 Vaccine (4 - 2024- 6 season) 2025 04/05/2021, 08/03/2020, 07/06/2020 Influenza Vaccine (#1) 2025 , 03/24/2019, 03/15/2018, Additional history exists Pneumococcal vaccine 65+ Completed 020, 03/26/2016, 08/22/2013 Insurance MEDICARE [id number] MEDICARE Care Teams Surgical Garment Fitter Relationship Specialty Start Date End Date Martha Gifford MD [address] [place] [address] PCP - General Family Medicine 04/01/21
--- OUTSIDE RECORDS SUMMARY | 2025-02-21 01:51 | XMS_ITS | Patient Health Record ---
Author Organization [facility] Address [address] [facility] [address] [place] [address] Support Name Relationship Address Phone Leonel Macario Guarantor Unknown [phone] Reason For Referral No Information Plan Of Treatment No Information Insurance Providers Payer Name Payer Address Payer Phone Subscriber Number Group Number Insured Name Patient Relationship to Insured Coverage Start Date Coverage End Date Aetna Medicare [address] [place], [place] [id number] Leonel Macario Self - patient is the insured
--- NOTE | 2025-02-21 08:00 | ECHO_ITS ---
Patient Info Name: Leonel Macario Age: 75 years : 1950 Gender: Male Ht: 67 in Wt: 175 lbs BSA: 1.95 m2 Technical Quality: Good Exam Date: 02/21/2025 7:46 AM Patient Status: unknown Admit Date: 02/21/2025 Exam Type: CA echo transesophageal Drill Operator Automatic: Lianne Dove Attending Provider: Wicho Love DO Summary 1. Left ventricular chamber dimension is normal. 2. Left ventricular systolic function is normal with an ejection fraction of 60-65% by visual estimation. 3. There is mild concentric increased left ventricular wall thickness. 4. The left ventricular diastolic function is indeterminate as it was not assessed. 5. Left atrial chamber dimension is mildly enlarged. 6. There is severe aortic valve sclerosis. 7. There is severe aortic valve stenosis with valve area of 0.9 cm2 by planimetry. 8. There is mild mitral valve regurgitation. Procedure Details Risks/benefits/alternative to KEERTHI discuss with patient and he gave informed consent. He was monitored electrocardiographically, vital and pulse ox. He was in sinus rhythm, HR 70 bpm, BP 150/80 mmHg, pulse ox 100%. Cetacaine spray x1 to posterior oropharynx. KEERTHI probe advanced without incident into esophagus. Multiple images obtained. Agitated saline injection x 1. KEERTHI probe withdrawn and no blood noted on KEERTHI probe tip. He tolerated procedure well with no complications. Left Ventricle Left ventricular chamber dimension is normal. Left ventricular systolic function is normal with an ejection fraction of 60-65% by visual estimation. There is mild concentric increased left ventricular wall thickness. The left ventricular diastolic function is indeterminate as it was not assessed. Right Ventricle Right ventricular chamber dimension is normal. Right ventricular systolic function is normal. Left Atria Left atrial chamber dimension is mildly enlarged. Right Atria Right atrial chamber dimension is normal. Atrial Septum Intact interatrial septum visualized by 2D, color flow and agitated saline imaging. Agitated saline injection opacified right side cardiac chambers without shunt to left side cardiac chambers. Atrial Appendage There is no thrombus visualized in the left atrial appendage. Aortic Valve The aortic valve is bicuspid. There is severe aortic valve sclerosis. There is severe aortic valve stenosis with valve area of 0.9 cm2 by planimetry. There is no aortic valve regurgitation. Pulmonic Valve There is no pulmonic regurgitation. Mitral Valve There is no mitral valve stenosis. There is mild mitral valve regurgitation. Tricuspid Valve There is no tricuspid valve regurgitation. Pericardium/Pleural There is no pericardial effusion. Inferior Vena Cava Inferior vena cava is not well visualized. Aorta The aortic root size at the sinus of Valsalva is normal. Aortic Valve Name Value Normal AV 2D/MM AV Area (Planimetry) 0.9 cm2 Report Signatures
[2025-02-21] MEDS: MIDAZOLAM HCL (*CRX) 2 MG/2 ML VIAL IV PUSH (08:35)
[2025-02-21] MEDS: fentaNYL CITRATE INJ (*CRX) 100 MCG/2 ML VIAL 50 MCG IV PUSH (08:35)
== END 2025-02-21 09:32 | disposition home or self-care (01) ==
PROVIDERS: PCP Family Medicine; Visit Provider Internal Medicine Cardiovascular Disease
PROC: (CPT 93312; principal; 2025-02-21 08:00)
DX: I35.0 Nonrheumatic aortic (valve) stenosis (principal); I25.10 Atherosclerotic heart disease of native coronary artery without angina pectoris; I35.8 Other nonrheumatic aortic valve disorders; I34.0 Nonrheumatic mitral (valve) insufficiency; I48.0 Paroxysmal atrial fibrillation; E11.9 Type 2 diabetes mellitus without complications; I10 Essential (primary) hypertension; E78.5 Hyperlipidemia, unspecified; Z79.82 Long term (current) use of aspirin; Z79.84 Long term (current) use of oral hypoglycemic drugs; Z79.85 Long-term (current) use of injectable non-insulin antidiabetic drugs; Z98.890 Other specified postprocedural states; Z98.61 Coronary angioplasty status
CPT/HCPCS: 93312; 93320; 93325; J2250; J3010; J7040

== ENCOUNTER 2025-03-20 01:40 | Day surgery (SDC) | payer MEDICARE, SELFPAY ==
--- OUTSIDE RECORDS SUMMARY | 2024-04-08 05:30 | XMS_ITS ---
Author Organization [facility] dicine Address [address] [place] [phone] Care Team Providers Care Medical Imaging Technologist Name Role Phone Dr. Martha Gifford Primary Care Provider [phone] Results Component Value Reference Range Notes Urine Culture Reviewed date:04/13/2024 12:00:00 AM Interpretation: Performing Lab: Notes/Report: C Urine See Below Outreach UA POC Reviewed date:04/13/2024 12:00:00 AM Interpretation: Performing Lab: Notes/Report: UA Appear Turbid UA Bili Negative UA Blood Trace-intact UA Color Yellow UA Glucose Negative UA Ketones Trace UA Leuk Est 1+ UA Nitrite Positive UA Perform Location [facility]CT [place] UA pH 5.5 UA Protein 1+ UA Spec Grav 1.025 UA Urobilinogen 0.2 REASON FOR VISIT prostatitis Vital Signs Weight-kg 81.92 kg 04/08/2024 Weight 180.60 lbs 04/08/2024 Respiratory Rate 18 /min 04/08/2024 Heart Rate 101 /min 04/08/2024 Blood pressure systolic 112 mm Hg 04/08/20 24 Blood pressure diastolic 62 mm Hg 024 Temperature 97.9 degrees Fahrenheit 04/08/20 24 Oximetry 98 % 04/08/2024 Encounters Encounter Location Date Provider Diagnosis [address] [address] 04/08/2024 Dr. Martha Gifford Allergic rhinitis, unspecified J30.9 ; Cough, unspecified R05.9 ; Other specified symptoms and signs involving the circulatory and respiratory systems R09.89 and Acute prostatitis N41.0 Assessments Encounter Date Diagnosis (ICD Code) Assessment Notes Treatment Notes Treatment Clinical Notes Section Notes 04/08/2024 Allergic rhinitis, unspecified (ICD-10 - J30.9) 04/08/2024 Cough, unspecified (ICD-10 - R05.9) 04/08/2024 Other specified symptoms and signs involving the circulatory and respiratory systems (ICD-10 - R09.89) 04/08/2024 Acute prostatitis (ICD-10 - N41.0) Plan Of Treatment Next Appt Details Provider Name:Dr. Martha Hardy [facility], 03/23/2026 02:30:00 PM, [address] [employer] [facility], [place], [address], [phone] Progress Notes * Leonel MACARIO LDOB:1950 (75 yo M)Acc No.[id number]:04/08/2024 Patient: Leonel Reyes Provider: Aries Gifford MD :1950 A ge:74 Y S ex:Male Date:04/08/2024 Address:[address] [place], [place] [id number] Subjective: * Chief Complaints: * P rostatitis Objective: * Vitals: B P: 112/62 mm Hg, HR: 101 /min, RR: 18 /min, Temp: 97.9 F, Oxygen sat %: 98 %, Wt: 180.60 lbs, Wt-k.92 kg. Past Vitals:* 06/15/2023 BP: 124/74 mm Hg, HR: 94 /mi n, Oxygen sat %: 98 %, Wt: 178.38 lbs, Wt-k.91 kg * 02/12/2023 BP: 112/70 mm Hg, HR: 102 /m in, Oxygen sat %: 97 %, Wt: 181.00 lbs, Wt-k.10 kg Assessment: * Assessment: 1. A llergic rhinitis, unspecified - J30.9 S pecify :Src Diagnosis Name: Allergic rhinitis 2 . A cute prostatitis - N41.0 3 . O ther specified symptoms and signs involving the circulatory and respiratory systems - R09.89 S pecify :Src Diagnosis Name: Abnormal chest sounds 4 . C ough, unspecified - R05.9 S pecify :Src Diagnosis Name: Cough Plan: * Labs: * L ab: Urine Culture Value Reference Range C Urine See Below * C Urine: _ F inal >100,000 cfu/ml Klebsiella pneumoniae _ O RGANISM Klebsiella pneumoniae _ O RGANISM Klebsiella pneumoniae _ A NTIBIOTIC ELMER DILUTN ELMER INTERP A moxicillin/Clavulanate <=8/4 Susceptible A mpicillin 16 Resistant C efazolin <=2 Susceptible C iprofloxacin <=0.25 Susceptible G entamicin <=4 Susceptible L evofloxacin <=0.5 Susceptible N itrofurantoin 64 Intermediate T obramycin <=4 Susceptible T rimethoprim/Sulfa <=2/38 Susceptible _ T est Performed by: [facility] [address], [address] [place] [address] P venancio : ?Lab: Outreach UA POC* Value Reference Range U A Appear Turbid * U A Bili Negative * U A Blood Trace-intact * U A Color Yellow * U A Glucose Negative * U A Ketones Trace * U A Leuk Est 1+ * U A Nitrite Positive * U A Perform Location [facility]CT [place] * U A pH 5.5 * U A Protein 1+ * U A Spec Grav 1.025 * U A Urobilinogen 0.2 * (04/12/2024 09:39 AM) Test p erformed at [address] [address] CLIA#[id number] , U A Perform Location POCT: Test Performed by: S [address], [address] [place] [address] P venancio : * Electronic signature of Dr. Martha Gifford on 03/20/2025 at 01:43 AM CDT Sign off status: Pending * Provider: Aries Gifford MD Date: 06/08/2023 Generated for Printi ng/Faxing/eTransmitting on: 01:43 AM CDT
--- OUTSIDE RECORDS SUMMARY | 2024-04-30 04:00 | XMS_ITS ---
Author Organization [facility] Address [address] [place] [address] Care Team Providers Care Technical Analyst Name Role Phone Dr. Martha Gifford Primary Care Provider [phone] Migration, Provider Unavailable Unavailable REASON FOR VISIT EMR-Victor Hugo Encounters Encounter Location Date Provider Diagnosis [facility] [address] [place] [address] 04/30/2024 Provider Migration Plan Of Treatment Medication Medication Name Sig Start Date Stop Date Notes Montelukast Sodium 10 MG Tablet 1 Oral every day; Duration: 08/08/2022 02/23/2023 ,discontinuereason:D i scontinued Pantoprazole Sodium 20 MG Tablet Delayed Release 1 Oral every day; Duration: 11/04/2023 05/01/2024 Benzonatate 200 MG Capsule 1 Oral three times a day; Duration: 05/04/2023 05/13/2023 OZEMPIC 1 mg/dose (2 mg/1.5 mL) ; Duration: 08/20/2021 08/05/2022 ,discontinuereas on:Di scontinued *Reorder from [facility] for eRx and Interaction Alerts* Paxlovid (150/100) 10 x 150 MG & 10 x 100MG Tablet Therapy Pack Oral two times a day; Duration: 12/04/2021 12/08/2021 Glimepiride 2 MG Tablet Oral; Duration: 0 02/13/202102/13 ,discontinuereason:Di scontinued Pantoprazole Sodium 40 MG Tablet Delayed Release 1 Oral every day; Duration: 09/18/2022 11/20/2022 ,discontinuereason:R e filled OZEMPIC 1 mg/dose (2 mg/1.5 mL) Milliliter(s) 0.75ml Subcutaneous; Duration: 0 02/13/2021 03/11/2021 Rx Refill Request,discontinuere ason:Refilled *Reorder from [facility] for eRx and Interaction Alerts* Paxlovid (300/100) 20 x 150 MG & 10 x 100MG Tablet Therapy Pack Oral two times a day; Duration: 05/04/2023 05/08/2023 Ciprofloxacin HCl 500 MG Tablet 1 Oral two times a day; Duration: 04/08/2024 04/21/2024 Triamcinolone Acetonide 0.1 % Cream External two times a day; Duration: 11/20/2021 02/11/2022 ,discontinuereason:D i scontinued Simvastatin 20 MG Tablet 1 Oral every da y; Duration: 11/04/2023 11/04/2023 Rx Refill Request,discontinuere ason:Refilled Magnesium Oxide (Elemental) 400 MG Tablet 1 Oral two times a day; Duration: 06/15/2023 12/11/2023 guaiFENesin-Codeine 100-10 MG/5ML Solution 5 Oral every night at bedtime; Duration: 12/04/2021 12/08/2021 Ozempic (2 MG/DOSE) 8 MG/3ML Solution Pen-injector Subcutaneous; Duration: 11/04/2023 11/04/2023 Rx Refill Request,discontinuere ason:Refilled Lisinopril 20 MG Tablet 1 Oral every day ; Duration: 06/15/2023 06/15/2023 Rx Refill Request,discontinuere ason:Refilled Carvedilol 6.25 MG Tablet Oral; Duration: 11/04/2023 04/07/2024 ,discontinuer debbie:Di scontinued Magnesium Oxide 400 MG Tablet 1 Oral every day; Duration: 02/13/2021 02/23/2023 ,discontinuereason:D i scontinued Ozempic (1 MG/DOSE) 4 MG/3ML Solution Pen-injector Subcutaneous; Duration: 84 03/20/2023 06/11/2023 ,discontinuereason:R e filled metFORMIN HCl ER 500 MG Tablet Extended Release 24 Hour 2 Oral two times a day; Duration: 90 07/29/2023 01/24/2024 Next Appt Details Provider Name:Dr. Martha bobby, 03/23/2026 02:30:00 PM, [address] [facility], [place], [address], [phone] Progress Notes * CHALaureny LDOB:1950 (75 yo M)Acc No.[id number]:04/30/2024 Patient: Leonel JAVIER :1950 A ge:74 Y S ex:Male Address:[address] [place] [phone] * Refills Stop Magnesium Oxide Tablet, 400 MG, Oral, 60, 1, two times a day, 0 Stop Pantoprazole Sodium Tablet Delayed Release, 40 MG, Oral, 90, 1, every day, 90 Stop Pantoprazole Sodium Tablet Delayed Release, 20 MG, Oral, 90, 1, every day, 90 Stop Carvedilol Tablet, 6.25 MG, Oral, 270, 90 Stop guaiFENesin-Codeine Solution, 100-10 MG/5ML, Oral, 25, 5, every night at bedtime, 5 Stop Simvastatin Tablet, 20 MG, Oral, 90, 1, every day, 90 Stop Ozempic (2 MG/DOSE) Solution Pen-injector, 8 MG/3ML, Subcutaneous, 9, 84 Stop Simvastatin Tablet, 20 MG, Oral, 90, 1, every day, 90 Stop Benzonatate Capsule, 200 MG, Oral, 30, 1, three times a day, 10 Stop Montelukast Sodium Tablet, 10 MG, Oral, 1, every day, 0 Stop Montelukast Sodium Tablet, 10 MG, Oral, 90, 1, every day, 90 Stop Montelukast Sodium Tablet, 10 MG, Oral, 90, 1, every day, 90 Stop Pantoprazole Sodium Tablet Delayed Release, 40 MG, Oral, 90, 1, every day, 90 Stop Pantoprazole Sodium Tablet Delayed Release, 20 MG, Oral, 90, 1, every day, 90 Stop metFORMIN HCl ER Tablet Extended Release 24 Hour, 500 MG, Oral, 360, 2, two times a day, 90 Stop Paxlovid (150/100) Tablet Therapy Pack, 10 x 150 MG & 10 x 100MG, Oral, 30, two times a day, 5 Stop Montelukast Sodium Tablet, 10 MG, Oral, 90, 1, every day, 0 Stop Ozempic (1 MG/DOSE) Solution Pen-injector, 4 MG/3ML, Subcutaneous, Stop Carvedilol Tablet, 6.25 MG, Oral, 270, 90 Stop Simvastatin Tablet, 20 MG, Oral, 90, 1, every day, 90 Stop Ozempic (1 MG/DOSE) Solution Pen-injector, 4 MG/3ML, Subcutaneous, Stop Ozempic (1 MG/DOSE) Solution Pen-injector, 4 MG/3ML, Subcutaneous, Stop Magnesium Oxide (Elemental) Tablet, 400 MG, Oral, 180, 1, two times a day, 90 Stop Carvedilol Tablet, 6.25 MG, Oral, 270, 90 Stop Pantoprazole Sodium Tablet Delayed Release, 40 MG, Oral, 90, 1, every day, 90 Stop Ozempic (1 MG/DOSE) Solution Pen-injector, 4 MG/3ML, Subcutaneous, Stop OZEMPIC, 1 mg/dose (2 mg/1.5 mL), Stop Simvastatin Tablet, 20 MG, Oral, 90, 1, every day, 90 Stop metFORMIN HCl ER Tablet Extended Release 24 Hour, 500 MG, Oral, 360, 2, two times a day, 90 Stop metFORMIN HCl ER Tablet Extended Release 24 Hour, 500 MG, Oral, 360, 2, two times a day, 90 Stop Ozempic (2 MG/DOSE) Solution Pen-injector, 8 MG/3ML, Subcutaneous, 9, 2, once a week, 90 Stop Paxlovid (300/100) Tablet Therapy Pack, 20 x 150 MG & 10 x 100MG, Oral, 1, two times a day, 5 Stop Ciprofloxacin HCl Tablet, 500 MG, Oral, 28, 1, two times a day, 14 Stop Glimepiride Tablet, 2 MG, Oral, 0 Stop Lisinopril Tablet, 20 MG, Oral, 90, 1, every day, 90 Stop Lisinopril Tablet, 20 MG, Oral, 90, 1, every day, 90 Stop Montelukast Sodium Tablet, 10 MG, Oral, 90, 1, every day, 90 Stop Carvedilol Tablet, 6.25 MG, Oral, 270, 1.5, two times a day, 90 Stop Carvedilol Tablet, 6.25 MG, Oral, 270, 90 Stop Lisinopril Tablet, 20 MG, Oral, 90, 1, every day, 90 Stop Lisinopril Tablet, 20 MG, Oral, 90, 1, every day, 90 Stop Simvastatin Tablet, 20 MG, Oral, 90, 1, every day, 90 Stop Triamcinolone Acetonide Cream, 0.1 %, External, 60, two times a day, 0 Stop Simvastatin Tablet, 20 MG, Oral, 90, 1, every day, 90 Stop metFORMIN HCl ER Tablet Extended Release 24 Hour, 500 MG, Oral, 360, 2, two times a day, 90 Stop Ozempic (1 MG/DOSE) Solution Pen-injector, 4 MG/3ML, Subcutaneous, Stop OZEMPIC, 1 mg/dose (2 mg/1.5 mL), Stop Carvedilol Tablet, 6.25 MG, Oral, 270, 90 Stop Lisinopril Tablet, 20 MG, Oral, 90, 1, every day, 90 Stop Pantoprazole Sodium Tablet Delayed Release, 40 MG, Oral, 90, 1, every day, 90 Stop OZEMPIC Milliliter(s), 1 mg/dose (2 mg/1.5 mL), Subcutaneous, 0.75ml, 0 Stop Carvedilol Tablet, 6.25 MG, Oral, 270, 90 Stop Pantoprazole Sodium Tablet Delayed Release, 20 MG, Oral, 90, 1, every day, 90 Stop Simvastatin Tablet, 20 MG, Oral, 90, 1, every day, 90 Stop metFORMIN HCl ER Tablet Extended Release 24 Hour, 500 MG, Oral, 360, 2, two times a day, 90 Stop Carvedilol Tablet, 6.25 MG, Oral, 270, 90 Stop Pantoprazole Sodium Tablet Delayed Release, 20 MG, Oral, 90, 1, every day, 90 Stop Simvastatin Tablet, 20 MG, Oral, 90, 1, every day, 90 Stop Ozempic (1 MG/DOSE) Solution Pen-injector, 4 MG/3ML, Subcutaneous, 9, Stop Lisinopril Tablet, 20 MG, Oral, 90, 1, every day, 90 Stop Magnesium Oxide Tablet, 400 MG, Oral, 1, every day, 0 Stop metFORMIN HCl ER Tablet Extended Release 24 Hour, 500 MG, Oral, 360, 2, two times a day, 90 Stop metFORMIN HCl ER Tablet Extended Release 24 Hour, 500 MG, Oral, 360, 2, two times a day, 90 Stop Ozempic (1 MG/DOSE) Solution Pen-injector, 4 MG/3ML, Subcutaneous, Subjective: * Chief Complaints: * E MR-Victor Hugo Objective: Past Vitals:* 06/15/2023 BP: 124/74 mm Hg, HR: 94 /mi n, Oxygen sat %: 98 %, Wt: 178.38 lbs, Wt-k.91 kg * 02/12/2023 BP: 112/70 mm Hg, HR: 102 /m in, Oxygen sat %: 97 %, Wt: 181.00 lbs, Wt-k.10 kg * * Date:
--- OUTSIDE RECORDS SUMMARY | 2024-05-01 04:00 | XMS_ITS ---
Author Organization [facility] dicine Address [address] [place] [address] Care Team Providers Care Flag Signalman Name Role Phone Dr. Martha Gifford Primary Care Provider [phone] Migration, Provider Unavailable Unavailable Allergies Allergen (clinical [...] day; Duration: 0 02/13/2021 Active Krill Oil 1,855-067-22-50 mg Capsule 1 Oral two times a day; Duration: 0 *Pick strength-form from [facility] for eRX* 02/13/2021 Active Lisinopril 20 MG Tablet 1 Oral every day; Duration: 90 01/29/2024 07/26/2024 Active Carvedilol 6.25 MG Tablet Oral; Duration: 90 04/27/2024 07/25/2024 Active Multi-Vitamin - Tablet 1 Oral every day; Duration: 0 02/13/2021 Active Spiriva Respimat inhalation; Duration: 0 *Pick strength-form from [employer] for eRX* 08/14/2021 Active Ozempic (2 MG/DOSE) [...] status: Encounters Encounter Location Date Provider Diagnosis [facility] [address] [place] [address] 05/01/2024 Provider Migration Plan Of Treatment Next Appt Details Provider Name:Dr. Martha bobby, 03/23/2026 02:30:00 PM, [address], [place], [address], [phone] Progress Notes * Leonel MACARIO LDOB:1950 (75 yo M)Acc No.[id number]:05/01/2024 Patient: Areli DEUTSCHLeonel Stephens Daniel :1950 A ge:74 Y S ex:Male Address:[address] [place] [phone] Subjective: * Chief Complaints: * E MR-Victor Hugo * Surgical History: appendectomy 09/2011 * Social History: M igrated Social History: M igrated Social History: Marital status:. * Medications: T akingLisinopril 20 MG Tablet 1 Oral every day , stop date 07/26/2024Niacin 500 MG Tablet 3 Oral every day Spiriva Respimat inhalation , Notes to Pharmacist: *Pick strength-form from [facility] for eRX*Fluticasone Propionate 50 MCG/ACT Suspension 1 Nasal two times a day , stop date 07/06/2024Simvastatin 20 MG Tablet 1 Oral every day , stop date 10/18/2024spirin Adult Low Strength 81 MG Tablet Delayed Release 1 Oral every day Carvedilol 6.25 MG Tablet Oral , stop date 07/25/2024Multi-Vitamin - Tablet 1 Oral every day Krill Oil 1,236-615-06-50 mg Capsule 1 Oral two times a day , Notes to Pharmacist: *Pick strength-form from [facility] for eRX*Ozempic (2 MG/DOSE) 8 MG/3ML Solution Pen-injector Subcutaneous , stop date 10/06/2024Taking Lisinopril 20 MG Tablet 1 Oral every day , stop date 07/26/2024Taking Niacin 500 MG Tablet 3 Oral every day Taking Spiriva Respimat inhalation , Notes to Pharmacist: *Pick strength-form from [facility] for eRX*Taking Fluticasone Propionate 50 MCG/ACT Suspension 1 Nasal two times a day , stop date 07/06/2024Taking Simvastatin 20 MG Tablet 1 Oral every day , stop date 10/18/2024Taking Aspirin Adult Low Strength 81 MG Tablet Delayed Release 1 Oral every day Taking Carvedilol 6.25 MG Tablet Oral , stop date 07/25/2024Taking Multi-Vitamin - Tablet 1 Oral every day Taking Krill Oil 1,777-219-23-50 mg Capsule 1 Oral two times a day , Notes to Pharmacist: *Pick strength-form from [facility] for eRX*Taking Ozempic (2 MG/DOSE) 8 MG/3ML [...]
[2025-03-17 11:24] VITALS: BMI 26.4
[2025-03-20] VITALS (19 sets, daily range): BP systolic 119–159; BP diastolic 83–102; PULSE 79–87; RESP 14–19; TEMP 36.8; O2SAT 95–98; BMI 25.7
--- OUTSIDE RECORDS SUMMARY | 2025-03-20 01:43 | XMS_ITS | Encounter Summary ---
Author Organization [facility] Address [facility] [place] [address] Care Team Providers Care Law Writer Name Role Phone Martha Gifford MD Primary Care Provider Encounter Details Date Type Department Care Team (Late st Contact Info) Description 11/26/2022 MyChart Message Enc [facility] - [facility] [address] [place], [place] [id number] Mychart, [facility] Provider Air Quality Message Social History Tobacco Use Types Packs/Day Years Used Date Smoking Tobacco: Former Cigarettes 1 15 0 01/23/1992 - 2007 Passive Smoke Exposure: Past Smokeless Tobacco: Never Alcohol Use Standard Drinks/Week Comments Not Currently 3.3 (1 standard drink = 0.6 oz p ure alcohol) PHQ-2 Answer Date Recorded Patient Health Questionnaire-2 Score 0 07/03/2022 Sex and Gender Information Value Date Recorded Sex Assigned at Not on file 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
--- OUTSIDE RECORDS SUMMARY | 2025-03-20 01:43 | XMS_ITS | Clinical Summary ---
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 Gender Identity Not on file Sexual Orientation Not on file Obstetrics History Last Filed Vital Signs Vital Sign Reading Time Taken Comments Blood Pressure 118/78 07/18/2021 12:43 PM LICENSED NUCLEAR OPERATOR Pulse 96 07/18/2021 12:43 PM LICENSED NUCLEAR OPERATOR Temperature 36.3 C (97.3 F) 07/18/2021 12:43 PM LICENSED NUCLEAR OPERATOR Respiratory Rate 18 07/18/2021 12:43 PM LICENSED NUCLEAR OPERATOR Oxygen Saturation 97% 07/18/2021 12:43 PM LICENSED NUCLEAR OPERATOR Inhaled Oxygen Concentration - - Weight 86.2 kg (190 lb) 07/18/2021 12:43 PM LICENSED NUCLEAR OPERATOR Height 170.2 cm (5' 7) 07/18/2021 12:43 PM LICENSED NUCLEAR OPERATOR Body Mass Index 29.76 07/18/2021 12:43 PM LICENSED NUCLEAR OPERATOR Plan of Treatment Health Maintenance Due Date Last Done Comments Colon Cancer Screening-Colonoscopy 1950 Depression Screening 1950 Fall Risk Assessment 1950 Hepatitis C Screening 1950 Hepatitis B Screening 1969 Zoster Vaccine (2 of 3) 08/22/2014 06/27/2014 Abdominal Aortic Aneurysm (A AA) Screen 01/23/2016 Well Visit 65+ 01/23/2016 DTaP/Tdap/Td Vaccine (2 - Td or Tdap) 02/21/2024 02/20/2014 Covid-19 Vaccine (4 - 2024-2 6 season) 2025 04/05/2021, 08/03/2020, 07/06/2020 Influenza Vaccine (#1) 2025 , 03/24/2019, 03/15/2018, Additional history exists Pneumococcal vaccine 65+ Completed 020, 03/26/2016, 08/22/2013 Insurance MEDICARE MEDICARE Care Teams Hoop Riveting Machine Operator Relationship Specialty Start Date End Date Martha Gifford MD [address] [place] [address] PCP - General Family Medicine 04/01/21
--- OUTSIDE RECORDS SUMMARY | 2025-03-20 01:44 | XMS_ITS | Clinical Summary ---
Author Organization [facility] Address [address] [place] [address] Care Team Providers Care Systems Analyst Name Role Phone Martha Gifford MD Primary Care Provider Allergies Active Allergy Reactions Criticality Noted Date Comments Ezetimibe Myalgias 06/28/2012 Penicillins Unknown,Other (see comment),Swelling Low 01/30/2011 Reaction: Swelling, Reaction: Medications fish oil (OMEGA-3 FATTY ACID) 1000 MG Cap capsule Take 1 capsule by mouth 2 (two) times daily. Active carvedilol (COREG) 6.25 MG tablet Take 6.25 mg by mouth daily. 01/30/2022 Active docusate sodium (COLACE) 100 MG capsule Take 1 capsule by mouth as needed. Active guaiFENesin-cod eine (GUAIFENESIN AC) 100-10 MG/5ML syrup Take 10 mg by mouth. 12/04/2021 Active lisinopril (PRINIVIL) 20 MG tablet Take 20 mg by mouth daily. 01/30/2022 Active Magnesium 200 MG Tab Take 200 mg by mouth. Active metFORMIN ER (GLUCOPHAGE-XR) 500 MG 24 hr tablet Take 500 mg by mouth. 05/06/2021 Active montelukast (SINGULAIR) 10 MG tablet Take 10 mg by mouth daily. 02/10/2022 Active niacin 500 MG Tab Take 500 mg by mouth daily. Active pantoprazole EC (PROTONIX) 40 MG tablet Take 40 mg by mouth daily. 03/27/2022 Active OZEMPIC, 1 MG/DOSE, 4 MG/3ML Solution Pen-injector Inject 2 mg into the skin weekly. 01/31/2022 Active simvastatin (ZOCOR) 20 MG tablet Take 20 mg by mouth daily. 03/28/2022 Active triamcinolone (KENALOG) 0.1 % cream 11/20/2021 Active multivitamin (THERA) tablet Take 1 tablet by mouth daily. 30 tablet 06/23/2022 Active Active Problems Problem Noted Date Diagnosed Date Encounter for screening for malignant neoplasm o f colon 06/09/2022 Overview (06/09/2022): Added automatically from request for surgery [id number] Asbestos exposure 04/04/2022 COPD (chronic obstructive pulmonary disease) 07/[address] nodules on [address] 07/31/2021 Abscess 02/09/2013 Overview (04/04/2022): Note: 01/26/2013 - Date Onset: Cellulitis and abscess of trunk 01/26/2013 Overview (04/04/2022): Date Onset: 01/26/2013 Benign essential hypertension 01/30/2011 Cardiomyopathy 01/30/2011 Diabetes mellitus, type II 01/30/2011 Erectile dysfunction 01/30/2011 Overview (04/04/2022): Note: Dr Rubalcava Date Onset: 05-04-09 Hyperlipidemia 01/30/2011 Encounters Date Type Department Care Team Description 01/18/2025 8:00 AM CDT - 01/18/2025 11:59 PM CDT Hospital Encounter [facility] [address] [place] [address] Martha Gifford MD Discharge Disposition: Home or Self Care (Routine Discharge) 01/18/2025 Travel from Last 3 Months Immunizations Immunization Administration Dates Next Due MODERNA COVID-19 (12+) MRNA, LNP-S, PF, 100 MCG/ 0.5 ML DOSE 08/03/2020,07/06/2020 Family History Medical History Relation Comments Diabetes Brother Relation Status Comments Brother Social History Tobacco Use Types Packs/Day Years Used Date Smoking Tobacco: Former Cigarettes 1 15 0 01/23/1992 - 2007 Passive Smoke Exposure: Past Smokeless Tobacco: Never Tobacco Cessation:Counseling Given: No Alcohol Use Standard Drinks/Week Comments Not Currently 3.3 (1 standard drink = 0.6 oz p ure alcohol) PHQ-2 Answer Date Recorded Patient Health Questionnaire-2 Score 0 07/03/2022 Sex and Gender Information Value Date Recorded Sex Assigned at Not on file Legal Sex Male 8:25 AM BUMPER OPERATOR Gender Identity Male 03/30/2023 7:41 AM CDT Sexual Orientation Straight 03/30/2023 7: 41 AM CDT Last Filed Vital Signs Vital Sign Reading Time Taken Comments Blood Pressure 116/74 07/03/2022 2:00 PM BUMPER OPERATOR Pulse 100 07/03/2022 2:00 PM BUMPER OPERATOR Temperature 36.9 C (98.4 F) 07/03/2022 2:00 PM BUMPER OPERATOR Respiratory Rate 14 07/03/2022 2:00 PM BUMPER OPERATOR Oxygen Saturation 96% 07/03/2022 2:00 PM BUMPER OPERATOR Inhaled Oxygen Concentration - - Weight 79.4 kg (175 lb 0.7 oz) 07/03/2022 2:00 P M BUMPER OPERATOR Height 172.7 cm (5' 8) 07/03/2022 2:00 PM BUMPER OPERATOR Body Mass Index 26.62 07/03/2022 2:00 PM BUMPER OPERATOR Plan of Treatment Health Maintenance Due Date Last Done Comments Kidney Health Evaluation 1950 Diabetes: Retinopathy Eye Exam 1969 Hepatitis C 1969 RSV Immunization or 60+ Years (1 - Risk 60-74 years 1-dose series) 2011 Zoster Vaccines (2 of 3) 08/22/2014 06/27/2014 Lipid Panel 05/29/2015 05/29/2014, 10/31, 04/25/2013, Additional history exists Hemoglobin A1C 10/23/2015 04/24/2015, 12/30, 05/29/2014, Additional history exists Annual Medicare Wellness Visit 01/23/2016 Pneumococcal Vaccine: 50+ Years (3 of 3 - PCV20 or PCV21) 03/26/2021 03/26/2016, 08/22/2013 DTaP, Tdap and Td Vaccines (2 - Td or Tdap) 02/21/2024 02/20/2014 COVID-19 Vaccine (3 - season) 2025 08/03/2020, 07/06/2020 Influenza Adult (#1) 2025 03/15/2018, 03/25/2017, 03/26/2016, Additional history exists Colorectal Cancer Screening Colonoscopy (10 Years) 06/23/2032 06/23/2022, 06/23/2022 Meningococcal B Vaccine Aged Out No l onger eligible based on patient's age to complete this topic Meningococcal Vaccine Aged Out No johnnie ayanna eligible based on patient's age to complete this topic RSV Immunizations Under 20 Months Aged Out No longer eligible based on patient's age to complete this topic Procedures Procedure Name Priority Date/Time Associated Diagnosis Comments USE ECHOCARDIOGRAM W CON Routine 01/18/2025 8:59 AM CDT Moderate aortic stenosis COLONOSCOPY Routine 06/23/2022 11:08 AM BUMPER OPERATOR HEMOGLOBIN, GLYCOSYLATED Routine 04/24/2015 8:32 AM BUMPER OPERATOR LIPID PANEL Routine 05/29/2014 8:27 AM BUMPER OPERATOR from Last 3 Months or Most Recently Relevant to Health Maintenance Results * USE ECHOCARDIOGRAM W CON (01/18/2025 8:59 AM CDT) Anatomical Region Laterality Modality NA Ultrasound 01/18/2025 8:14 AM CDT Narrative 2025 5:40 PM CDT [facility] Pat.Name: Leonel Macario Pat.ID: [id number] St.Date: 01/18/2025 Refer.MD: Anabel, [facility] Exam Time: 8:14:00 AM Study Type:OUTREACH Height: 68 in Weight: 170 lb BSA: 1.91 m2 Age: 8 1950,74Y Sex: M Pat. Stat.:Outpatient Reason for Study:MODERATE AORTIC STENOSIS Procedures: Study performed at [place], [place] and interpreted by [facility]. 2D, M-mode, Doppler, Color Flow, Myocardial contrast was used to enhance endocardial definition. ++++++++++++++++++++++++++++++++++++ SUMMARY: ++++++++++++++++++++++++++++++++++++ Left ventricle is normal in size with low normal systolic function Estimated EF of 50% Moderate eccentric LVH Right ventricle is normal in size and systolic function At least moderate to severe aortic stenosis, possibly severe Unable to estimate pulmonary pressures Would consider further workup for significant aortic stenosis. ++++++++++++++++++++++++++++++++++++ FINDINGS: ++++++++++++++++++++++++++++++++++++ LV: The left ventricular size is normal. The left ventricular systolic function is lower limits of normal. Estimated left ventricular ejection fraction is 50%. Moderate eccentric left ventricular hypertrophy. Left ventricular diastolic function is abnormal (grade 1 - impaired relaxation). RV: The right ventricular size is normal. Right ventricular systolic function is normal. TAPSE = 16mm (<16 mm indicates systolic RV dysfunction). Measured offline. LA: Left atrial size is normal. RA: The right atrial size is normal. FARHAN: No evidence of pericardial effusion. AO: Aorta is normal. SVn: Inferior vena cava is normal. AV: Moderate to severe aortic valve stenosis. The peak velocity across the aortic valve measures 3.5m/sec with a peak gradient of 50mmHg and a mean gradient of 31mmHg. The calculated aortic valve area is .8cm2. Based on current guidelines, one or more hemodynamic or anatomic indicators of significant aortic stenosis have been identified. Clinical correlation and cardiology consultation should be considered. No evidence of aortic regurgitation. Dimensionless index of .25. The aortic valve not well visualized. The LVOT stroke volume index is 30. MV: The mitral valve is structurally normal. There is trace mitral regurgitation. PV: Pulmonic valve not well visualized. TV: Doppler assessment inadequate to accurately assess the degree of tricuspid regurgitation. The tricuspid valve is not well visualized. <Electronic Signature> 2025 05:40 PM Caleb Padilla M.D. Procedure Note Caleb Padilla MD - 2025 [facility] Pat.Name: Leonel Macario.ID: [id number] .Date: 01/18/2025 Refer.MD: Anabel, [facility] Exam Time: 8:14:00 AM Study Type:ANABEL Height: 68 in Weight: 170 lb BSA: 1.91 m2 Age: 8 1950,74Y Sex: M Pat. Stat.:Outpatient Reason for Study:MODERATE AORTIC STENOSIS Procedures: Study performed at [facility], [place], [place] and interpreted by [facility]. 2D, M-mode, Doppler, Color Flow, Myocardial contrast was used to enhance endocardial definition. ++++++++++++++++++++++++++++++++++++ SUMMARY: ++++++++++++++++++++++++++++++++++++ Left ventricle is normal in size with low normal systolic function Estimated EF of 50% Moderate eccentric LVH Right ventricle is normal in size and systolic function At least moderate to severe aortic stenosis, possibly severe Unable to estimate pulmonary pressures Would consider further workup for significant aortic stenosis. ++++++++++++++++++++++++++++++++++++ FINDINGS: ++++++++++++++++++++++++++++++++++++ LV: The left ventricular size is normal. The left ventricular systolic function is lower limits of normal. Estimated left ventricular ejection fraction is 50%. Moderate eccentric left ventricular hypertrophy. Left ventricular diastolic function is abnormal (grade 1 - impaired relaxation). RV: The right ventricular size is normal. Right ventricular systolic function is normal. TAPSE = 16mm (<16 mm indicates systolic RV dysfunction). Measured offline. LA: Left atrial size is normal. RA: The right atrial size is normal. FARHAN: No evidence of pericardial effusion. AO: Aorta is normal. SVn: Inferior vena cava is normal. AV: Moderate to severe aortic valve stenosis. The peak velocity across the aortic valve measures 3.5m/sec with a peak gradient of 50mmHg and a mean gradient of 31mmHg. The calculated aortic valve area is .8cm2. Based on current guidelines, one or more hemodynamic or anatomic indicators of significant aortic stenosis have been identified. Clinical correlation and cardiology consultation should be considered. No evidence of aortic regurgitation. Dimensionless index of .25. The aortic valve not well visualized. The LVOT stroke volume index is 30. MV: The mitral valve is structurally normal. There is trace mitral regurgitation. PV: Pulmonic valve not well visualized. TV: Doppler assessment inadequate to accurately assess the degree of tricuspid regurgitation. The tricuspid valve is not well visualized. <Electronic Signature> 2025 05:40 PM Caleb Padilla M.D. Martha Gifford MD ECHO Final Result * (ABNORMAL) HEMOGLOBIN, GLYCOSYLATED (04/24/2015 8:32 AM BUMPER OPERATOR) Pathologist [facility] [place] HGB A1C 7.5(H) 4.8 - 5.9 % [facility] TO EPIC CONVERSION Comment: Note: Hemoglobinopathies such as HbF, HbS, etc. may give incorrect results with this test. GLUCOSE 164 mg/dL [facility] T O EPIC CONVERSION 04/24/2015 8:32 AM BUMPER OPERATOR 04/24/2015 8:32 AM BUMPER OPERATOR Narrative [facility] TO EPIC CONVERSION - 04/24/2015 9:15 AM BUMPER OPERATOR This lab was migrated from [facility] and may be missing annotations or result text, please check the Media tab for the most complete results. Martha Gifford MD LABORATORY Final Result [facility] TO EPIC CONVERSION * (ABNORMAL) LIPID PANEL (05/29/2014 8:27 AM BUMPER OPERATOR) Pathologist [facility] [place] CHOLESTEROL 148 120 - 200 mg/dL [facility] TO EPIC CONVERSION TRIGLYCERIDES 261(H) 20 - 200 mg/dL [facility] TO EPIC CONVERSION HDL 38 0 - 55 mg/dL [facility] TO EPIC CONVERSION LDL (CALCULATED) 58 10 - 130 mg/dL [facility] TO EPIC CONVERSION RISK 4 [facility] T O EPIC CONVERSION 05/29/2014 8:27 AM BUMPER OPERATOR 05/29/2014 8:27 AM BUMPER OPERATOR Narrative [facility] TO EPIC CONVERSION - 05/29/2014 9:22 AM BUMPER OPERATOR This lab was migrated from [facility] and may be missing annotations or result text, please check the Media tab for the most complete results. Martha Gifford MD LABORATORY Final Result [facility] TO EPIC CONVERSION from Last 3 Months or Most Recently Relevant to Health Maintenance Insurance MEDICARE AET[employer] MEDICARE Advance Directives Documents on File Type Date Recorded Patient New Business Clerk Expl anation Advance Directives and Living Will 08/14/2014 12:00 AM ADVANCED DIRECTIVES Advance Directives and Living Will 08/14/2014 12:00 AM ADVANCED DIRECTIVES Advance Directives and Living Will 05/29/2014 12:00 AM ADVANCED DIRECTIVES Advance Directives and Living Will 05/29/2014 12:00 AM ADVANCED DIRECTIVES Advance Directives and Living Will 03/01/2014 12:00 AM ADVANCED DIRECTIVES Advance Directives and Living Will 03/01/2014 12:00 AM ADVANCED DIRECTIVES Advance Directives and Living Will 02/20/2014 12:00 AM ADVANCED DIRECTIVES Advance Directives and Living Will 02/20/2014 12:00 AM ADVANCED DIRECTIVES Advance Directives and Living Will 02/17/2014 12:00 AM ADVANCED DIRECTIVES Advance Directives and Living Will 02/17/2014 12:00 AM ADVANCED DIRECTIVES Advance Directives and Living Will 12/22/2013 12:00 AM ADVANCED DIRECTIVES Advance Directives and Living Will 12/22/2013 12:00 AM ADVANCED DIRECTIVES Advance Directives and Living Will 11/21/2013 12:00 AM ADVANCED DIRECTIVES Advance Directives and Living Will 11/21/2013 12:00 AM ADVANCED DIRECTIVES Advance Directives and Living Will 08/18/2013 12:00 AM ADVANCED DIRECTIVES Advance Directives and Living Will 08/18/2013 12:00 AM ADVANCED DIRECTIVES Advance Directives and Living Will 06/20/2013 12:00 AM ADVANCED DIRECTIVES Advance Directives and Living Will 06/20/2013 12:00 AM ADVANCED DIRECTIVES Advance Directives and Living Will 04/25/2013 12:00 AM ADVANCED DIRECTIVES Advance Directives and Living Will 04/25/2013 12:00 AM ADVANCED DIRECTIVES Advance Directives and Living Will 04/19/2013 12:00 AM ADVANCED DIRECTIVES Advance Directives and Living Will 04/19/2013 12:00 AM ADVANCED DIRECTIVES Advance Directives and Living Will 01/26/2013 12:00 AM ADVANCED DIRECTIVES Care Teams Systems Analyst Relationship Specialty Start Date End Date Martha Gifford MD [address] [place] [address] PCP - General FAMILY PRACTICE 09/02/21
--- OUTSIDE RECORDS SUMMARY | 2025-03-20 01:44 | XMS_ITS | Patient Health Record ---
Author Organization [facility] Address [address] [facility] [place] [address] Care Team Providers Care Hydrological Technical Officer Name Role Phone Dr. Martha Gifford Primary Care Provider [phone] Juany Castillo Unavailable [phone] Migration, Provider Unavailable Unavailable Allergies Allergen (clinical drug ingredient) Drug/Non Drug Allergy documented on EMR Reaction Allergy Type Onset Date Status ezetimibe Zetia Unknown Drug Allergy 02/12/2021 Active Penicillin Unknown Drug Allergy 02/12/2021 Activ e Results Component Value Reference Range Flag Notes Echocardiogram Reviewed date:01/23/2025 10:51:00 AM Interpretation: Performing Lab: Notes/Report: Magnesium Reviewed date:01/13/2025 12:59:32 PM Interpretation: Performing Lab: Notes/Report: Test Performed by: [address] [address] Assistant Track And Field Coach: Dante Gomez DO Magnesium Lvl 1.6 1.6-2.4 mg/dL Hemoglobin A1c {Glycosylated } Reviewed date:12/26/2024 08:04:09 PM Interpretation: Performing Lab: Notes/Report: Test Performed by: [address] [address] Assistant Track And Field Coach: Dante Gomez DO Hemoglobin A1c 7.0 <=6.4 [...] Interpretation: Performing Lab: Notes/Report: Test Performed by: [place] [id number] Assistant Track And Field Coach: Dante Gomez DO Vitamin D 25 OH 35 30-100 ng/mL Vitamin D25 Interpretation: Deficient: <= 20 ng/mL Insufficient: 21-29 ng/mL Sufficient: 30-100 ng/mL Upper Safety Limit: >100 ng/mL T4 Free Reviewed date:12/26/2024 08:04:09 PM Interpretation: Performing Lab: Notes/Report: Test Performed by: [place] [address] Assistant Track And Field Coach: Dante Gomez DO T4 Free 0.96 0.60-1.70 ng/dL CBC w Auto Diff Reviewed date:12/26/2024 08:04:09 PM Interpretation: Performing Lab: Notes/Report: i #[id number] Test Performed by: [place] [address] Assistant Track And Field Coach: Dante Gomez DO WBC 6.7 4.0-11.7 K/mcL RBC 4.54 4.28-5.56 x10*6/mcL Hgb 13.4 13.0-17.0 g/dL Hct 39.4 38.1-48.9 % MCV 86.8 83.4-98.1 fL MCH 29.5 27.0-34.2 pg MCHC 34.0 31.8-35.3 g/dL RDW 13.3 12.0-16.4 % Platelets 288 149-393 K/mcL MPV 9.2 7.0-11.0 fL Neutro Auto 60.5 45.3-79.0 % Lymph Auto 24.6 11.8-45.9 % [place] Auto 6.0 4.4-12.0 % Eosinophil Auto 8.2 0.0-6.3 % H Basophil Auto 0.7 0.2-1.6 % Neutro Absolute 4.1 2.4-8.4 x10*3/mcL Lymph Absolute 1.7 0.8-3.7 x10*3/mcL [place] Absolute 0.4 0.3-1.1 x10*3/mcL Eos Absolute 0.6 0.0-0.5 x10*3/mcL H Comprehensive Metabolic Pane l Reviewed date:12/26/2024 08:04:09 PM Interpretation: Performing Lab: Notes/Report: Test Performed by: [place] [address] Assistant Track And Field Coach: Dante Gomez DO Glucose Lvl 138 74-109 [...] Interpretation: Performing Lab: Notes/Report: Test Performed by: [place] [id number] Assistant Track And Field Coach: Dante Gomez DO Cholesterol Total 128 <=199 [...] Interpretation: Performing Lab: Notes/Report: Test Performed by: [address] [address] Assistant Track And Field Coach: Dante Gomez DO Magnesium Lvl 1.4 1.6-2.4 mg/dL L Thyroid Stimulating Hormone Reviewed date:12/26/2024 08:04:09 PM Interpretation: Performing Lab: Notes/Report: Test Performed by: [address] [address] Assistant Track And Field Coach: Dante Gomez DO TSH 1.93 0.45-5.33 mcIU/mL Vitamin B12 Reviewed date:12/26/2024 08:04:09 PM Interpretation: Performing Lab: Notes/Report: Test Performed by: [place] [id number] Assistant Track And Field Coach: Dante Gomez DO Vitamin B12 Lvl 388 180-914 pg/mL Vitamin B12 Interpretation: Normal Range: 180-914 pg/mL Indeterminate: 140-180 pg/mL Deficient: <140 pg/mL Hemoglobin A1c {Glycosylated } Reviewed date:03/01/2025 08:22:02 PM Interpretation: Performing Lab: Notes/Report: Test Performed by: [place] [address] Assistant Track And Field Coach: Dante Gomez DO Hemoglobin A1c 7.4 <=6.4 % H Hemoglobin A1C < 5.7% = Normal 5.7-6.4% = Increased risk for future diabetes >=6.5% = Diabetes eAvg Glucose 166 <=117 mg/dL H eAG Reference Range <117 mg/dL = Normal 117-137 mg/dL = Increased Risk For Future Diabetes >137 mg/dL = Diabetes Vitamin D 25 Hydroxy Reviewed date:03/01/2025 08:22:02 PM Interpretation: Performing Lab: Notes/Report: Test Performed by: [place] [address] Assistant Track And Field Coach: Dante Gomez DO Vitamin D 25 OH 30 30-100 ng/mL Vitamin D25 Interpretation: Deficient: <= 20 ng/mL Insufficient: 21-29 ng/mL Sufficient: 30-100 ng/mL Upper Safety Limit: >100 ng/mL T4 Free Reviewed date:03/01/2025 08:22:02 PM Interpretation: Performing Lab: Notes/Report: Test Performed by: [place] [address] Assistant Track And Field Coach: Dante Gomez DO T4 Free 0.90 0.60-1.70 ng/dL CBC w Auto Diff Reviewed date:03/01/2025 08:22:02 PM Interpretation: Performing Lab: Notes/Report: Test Performed by: [place] [address] Assistant Track And Field Coach: Dante Gomez DO WBC 8.7 4.0-11.7 K/mcL RBC 4.48 4.28-5.56 x10*6/mcL Hgb 13.1 13.0-17.0 g/dL Hct 39.2 38.1-48.9 % MCV 87.5 83.4-98.1 fL MCH 29.3 27.0-34.2 pg MCHC 33.5 31.8-35.3 g/dL RDW 13.1 12.0-16.4 % Platelets 285 149-393 K/mcL MPV 9.2 7.0-11.0 fL Neutro Auto 65.7 45.3-79.0 % Lymph Auto 20.0 11.8-45.9 % [place] Auto 5.7 4.4-12.0 % Eosinophil Auto 7.5 0.0-6.3 % H Basophil Auto 1.1 0.2-1.6 % Neutro Absolute 5.7 2.4-8.4 x10*3/mcL Lymph Absolute 1.7 0.8-3.7 x10*3/mcL [place] Absolute 0.5 0.3-1.1 x10*3/mcL Eos Absolute 0.7 0.0-0.5 x10*3/mcL H Baso Absolute 0.1 0.0-0.1 x10*3/mcL Comprehensive Metabolic Pane l Reviewed date:03/01/2025 08:22:02 PM Interpretation: Performing Lab: Notes/Report: Test Performed by: [place] [address] Assistant Track And Field Coach: Dante Gomez DO Glucose Lvl 153 74-109 mg/dL H ADA risk stratification for diabetes <100 mg/dL = Normal 100-125 mg/dL = Increased risk for future diabetes >=126 mg/dL = Diabetes, if on more than one testing occasion BUN 20 7-25 mg/dL Creatinine Lvl 1.00 0.70-1.30 mg/dL eGFR CKD-EPI 79 >=90 mL/min/1.73 m2 L The CKD-EPI equation [...] CKD (Kidney Int Suppl 2013;3:1-150) Calcium Lvl 10.7 8.6-10.3 mg/dL H Sodium Lvl 138 136-145 mmol/L Potassium Lvl 4.8 3.5-5.1 mmol/L Chloride Lvl 102 98-107 mmol/L CO2 29 21-31 mmol/L Anion Gap 6.6 <=16.0 mmol/L Alk Phos 71 34-104 unit/L Bilirubin Total 0.4 0.3-1.0 mg/dL Albumin Lvl 4.3 3.5-5.2 g/dL Protein Total 6.6 6.4-8.9 g/dL Albumin/Globulin Ratio 1.8 1.1-2.5 ALT 15 7-52 unit/L AST 14 13-39 unit/L Lipid Panel {Chol, Trig, HDL , LDL} Reviewed date:03/01/2025 08:22:02 PM Interpretation: Performing Lab: Notes/Report: Test Performed by: [place] [address] Assistant Track And Field Coach: Dante Gomez DO Cholesterol Total 124 <=199 mg/dL Triglycerides 130 0-149 mg/dL Triglyceride Reference Ranges: <150 mg/dL Normal 150 - 199 mg/dL Borderline High 200 - 499 mg/dL High >=500 mg/dL Very High LDL 60 <=100 mg/dL LDL Optimal: <100 Near or above optimal: 100-129 Borderline high: 130-159 High: 160-189 Very high: >=190 Coronary heart disease risk factors should be considered when determining LDL goals. Please refer to ATPIII guidelines for further information. If LDL is not calculated, please call the lab to add on the direct LDL methodology, if desired. HDL 38 23-92 mg/dL Non HDL Cholesterol 86 <=130 mg/dL Chol/HDL 3 0-5 Magnesium Reviewed date:03/01/2025 08:22:02 PM Interpretation: Performing Lab: Notes/Report: Test Performed by: [place] [id number] Assistant Track And Field Coach: Dante Gomez DO Magnesium Lvl 1.5 1.6-2.4 mg/dL L Thyroid Stimulating Hormone Reviewed date:03/01/2025 08:22:02 PM Interpretation: Performing Lab: Notes/Report: Test Performed by: [place] [id number] Assistant Track And Field Coach: Dante Gomez DO TSH 2.45 0.45-5.33 mcIU/mL Vitamin B12 Reviewed date:03/01/2025 08:22:02 PM Interpretation: Performing Lab: Notes/Report: Test Performed by: [address] [address] Assistant Track And Field Coach: Dante Gomez DO Vitamin B12 Lvl 396 180-914 pg/mL Vitamin B12 Interpretation: Normal Range: 180-914 pg/mL Indeterminate: 140-180 pg/mL Deficient: <140 pg/mL Echocardiogram Reviewed date:02/21/2025 04:41:25 PM Interpretation: Performing Lab: Notes/Report: Vitamin B12 Reviewed date:09/26/2024 10:34:27 PM Interpretation: Performing Lab: Notes/Report: Test Performed by: [address] [address] Assistant Track And Field Coach: Dante Gomez DO Vitamin B12 Lvl 245 180-914 pg/mL Vitamin B12 Interpretation: Normal Range: 180-914 pg/mL Indeterminate: 140-180 pg/mL Deficient: <140 pg/mL Thyroid Stimulating Hormone Reviewed date:09/26/2024 10:34:27 PM Interpretation: Performing Lab: Notes/Report: Test Performed by: [address] [address] Assistant Track And Field Coach: Dante Gomez DO TSH 1.85 0.45-5.33 mcIU/mL Magnesium Reviewed date:09/26/2024 10:34:27 PM Interpretation: Performing Lab: Notes/Report: Test Performed by: [address] [address] Assistant Track And Field Coach: Dante Gomez DO Magnesium Lvl 1.4 1.6-2.4 mg/dL L Lipid Panel {Chol, Trig, HDL , LDL} Reviewed date:09/26/2024 10:34:27 PM Interpretation: Performing Lab: Notes/Report: Test Performed by: [address] [address] Assistant Track And Field Coach: Dante Gomez DO Cholesterol Total 144 <=199 [...] 18-27 % Below Average Risk: 27-40 % Comprehensive Metabolic Pane l Reviewed date:09/26/2024 10:34:27 PM Interpretation: Performing Lab: Notes/Report: Test Performed by: [place] [address] Assistant Track And Field Coach: Dante Gomez DO Glucose Lvl 156 74-109 [...] 14 7-52 unit/L AST 13 13-39 unit/L CBC w Auto Diff Reviewed date:09/26/2024 10:34:27 PM Interpretation: Performing Lab: Notes/Report: Test Performed by: [place] [address] Assistant Track And Field Coach: Dante Gomez DO WBC 7.6 4.0-11.7 K/mcL RBC 4.55 4.28-5.56 x10*6/mcL Hgb 13.2 13.0-17.0 g/dL Hct 39.3 38.1-48.9 % MCV 86.4 83.4-98.1 fL MCH 29.1 27.0-34.2 pg MCHC 33.7 31.8-35.3 g/dL RDW 13.1 12.0-16.4 % Platelets 311 149-393 K/mcL MPV 9.4 7.0-11.0 fL Neutro Auto 66.3 45.3-79.0 % Lymph Auto 20.4 11.8-45.9 % [place] Auto 4.5 4.4-12.0 % Eosinophil Auto 7.9 0.0-6.3 % H Basophil Auto 0.9 0.2-1.6 % Neutro Absolute 5.1 2.4-8.4 x10*3/mcL Lymph Absolute 1.6 0.8-3.7 x10*3/mcL [place] Absolute 0.3 0.3-1.1 x10*3/mcL Eos Absolute 0.6 0.0-0.5 x10*3/mcL H Baso Absolute 0.1 0.0-0.1 x10*3/mcL T4 Free Reviewed date:09/26/2024 10:34:27 PM Interpretation: Performing Lab: Notes/Report: Test Performed by: [place] [id number] Assistant Track And Field Coach: Dante Gomez DO T4 Free 0.87 0.60-1.70 ng/dL Vitamin D 25 Hydroxy Reviewed date:09/26/2024 10:34:27 PM Interpretation: Performing Lab: Notes/Report: Test Performed by: [place] [id number] Assistant Track And Field Coach: Dante Gomez DO Vitamin D 25 OH 34 30-100 ng/mL Vitamin D25 Interpretation: Deficient: <= 20 ng/mL Insufficient: 21-29 ng/mL Sufficient: 30-100 ng/mL Upper Safety Limit: >100 ng/mL Hemoglobin A1c {Glycosylated } Reviewed date:09/26/2024 10:34:27 PM Interpretation: Performing Lab: Notes/Report: Test Performed by: [place] [id number] Assistant Track And Field Coach: Dante Gomez DO Hemoglobin A1c 7.3 <=6.4 % H Hemoglobin A1C < 5.7% = Normal 5.7-6.4% = Increased risk for future diabetes >=6.5% = Diabetes eAvg Glucose 163 <=117 mg/dL H eAG Reference Range <117 mg/dL = Normal 117-137 mg/dL = Increased Risk For Future Diabetes >137 mg/dL = Diabetes Urine Culture Reviewed date:04/13/2024 12:00:00 AM Interpretation: [...] UA Spec Grav 1.025 UA Urobilinogen 0.2 Reason For Referral No Information Medications Medication SIG (Take, Route, Frequency, Duration) Notes Start Date End Date Status Niacin 500 MG Tablet 3 Oral every day; Duration: 0 02/13/2021 Active Famotidine 40 MG Tablet 1 tablet Orally Once a day; Duration: 90 days 01/05/2025 Active metFORMIN HCl ER 500 MG Tablet Extended Release 24 Hour 2 tablets Orally twice a day; Duration: 90 days 09/29/2024 Active Carvedilol 6.25 MG Tablet 1.5 tablet Orally Twice a day; Duration: 90 days Active Lisinopril 20 MG Tablet 1 tablet Orally Once a day; Duration: 90 days Active Spiriva Respimat inhalation; Duration : 0 *Pick strength-form from [employer] for eRX* 08/14/2021 Active Multi-Vitamin - Tablet 1 Oral every day; Duration: 0 02/13/2021 Active Aspirin Adult Low Strength 81 MG Tablet Delayed Release 1 Oral every day; Duration: 0 02/13/2021 Active Fluticasone Propionate 50 MCG/ACT Suspension SPRAY 1 SPRAY INTO EACH NOSTRIL TWICE A DAY; Duration: 90 Active Simvastatin 20 MG Tablet 1 tablet in the evening Orally Once a day; Duration: 90 days Active Ozempic (2 MG/DOSE) 8 MG/3ML Solution Pen-injector 2 mg Subcutaneous weekly; Duration: 84 days Active Magnesium Oxide 400 MG Tablet 1 tablet with food Orally 3 times a day; Duration: 90 days increase to BID, please update for next RF. 09/29/2024 Active Krill Oil 1,223-540-27-50 mg Capsule 1 Oral two times a day; Duration: 0 *Pick strength-form from [employer] for eRX* 02/13/2021 Active Immunizations Vaccine Route Administration Date Status Comme nts RSV-MAb (Respiratory syncytial virus immune globulin) IM Intramuscular 05/20/2023 Administered ,sourcename : New immunization record ,immstatus : Complete Tdap Unknown 02/20/2014 Administered ,sourcename : Historical information -from other registry Source VFC Code: : Tdap IM Intramuscular 03/09/2024 Administered ,[facility] [place] : New immunization record ,immstatus : Complete Zoster Unknown 06/27/2014 Administered ,sourcename : Historical information -from other registry Source VFC Code: : Zoster IM Intramuscular 08/06/2022 Administered ,[facility] [place] : New immunization record ,immstatus : Complete Zoster IM Intramuscular 02/12/2023 Administered ,[facility] [place] : New immunization record ,immstatus : Complete Pneumococcal polysaccharide PPV23 IM Intramuscular 08/22/2013 Administered Source VFC Code: : Pneumococcal polysaccharide PPV23 IM Intramuscular 02/16/2020 Administered Source VFC Code: : Pneumococcal conjugate PCV 13 IM Intramuscular 03/26/2016 Administered Source VFC Code: : [employer] Covid-19 Vaccine 1st dose IM Intramuscular 03/08/2024 Administered ,sourcename : N ew immunization record ,immstatus : Complete Moderna Covid-19 Vaccine 1st dose IM Intramuscular [...] Unknown 04/05/2021 Administered Source VFC Code: : Influenza, seasonal, injectable, preservative free, 3 yrs and above IM Intramuscular 03/16/2013 Administered Source VFC Code: : Influenza, quadrivalent (IIV4), split virus, 6-35 months dosage IM Intramuscular 03/26/2016 Administered Source VFC Code: : Influenza, high-dose [...] ew immunization record ,immstatus : Complete Influenza, high dose seasonal IM Intramuscular 03/08/2024 Administered ,sourcename : N ew immunization record ,immstatus : Complete Influenza, high dose seasonal IM Intramuscular 03/06/2025 Administered COVID 19 Vaccine mRNAAudreyirnaty IM Intramuscular 03/06/2025 Administered Social History Tobacco Use: Social History Observation [...] Problem Status W/U Status Risk Notes Problem Enlarged prostate (073134789) Enlarged prostate without lower urinary tract symptoms (N40.0) 02/25/20 23 Active confirmed Problem Body mass index 25-29 - overweight (199594227) Body mass index (BMI) 28.0-28.9, adult (Z68.28) 02/25/20 23 Active confirmed Problem Elevated PSA (539068399) Elevated prostate specific antigen [PSA] (R97.20) 08/15/19 22 Active confirmed Problem History of asbestos exposure (877750956) Contact with and (suspected) exposure to asbestos (Z77.090) 03/28/20 21 Active confirmed Problem Adult health examination (313668854) Encounter for general adult medical examination without abnormal findings (Z00.00) 02/25/20 23 Active confirmed Problem Proteinuria (53831555) Proteinuria, unspecified (R80.9) 08/07/19 23 Active confirmed Problem Amnesia (82224890) Other amnesia (R41.3) 08/07/19 23 Active confirmed Problem Abnormal reflex (77822193) Abnormal reflex (R29.2) 08/15/19 22 Active confirmed Problem Paresthesia (finding) (53115760) Paresthesia of skin (R20.2) 08/15/19 22 Active confirmed Problem Heart murmur (finding) (62228230) Cardiac murmur, unspecified (R01.1) 06/15/19 24 Active confirmed Problem Acute prostatitis (59528296) Acute prostatitis (N41.0) 04/08/20 24 Active confirmed Problem Contracture of palmar fascia (701765261) 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) 02/13/20 22 Active confirmed Problem Localized, primary osteoarthritis of the hand (774146219) Primary osteoarthritis, 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) 02/13/20 22 Active confirmed Problem Polyp of colon (67586826) Polyp of colon (K63.5) 02/13/20 22 Active confirmed Problem Allergic rhinitis (95492153) Allergic rhinitis, unspecified (J30.9) 02/14/20 21 Active confirmed Problem Cardiac arrhythmia (960042650) Cardiac arrhythmia, unspecified (I49.9) 02/13/20 23 Active confirmed Problem Aortic valve disorder (0704398) Nonrheumatic aortic (valve) stenosis (I35.0) 03/09/20 24 Active confirmed Problem Essential hypertension (05672381) Essential (primary) hypertension (I10) 02/14/20 21 Active confirmed Problem Male erectile disorder (987897378) Male erectile disorder (F52.21) 02/25/20 23 Active confirmed Problem Hypercalcemia (01314814) Hypercalcemia (E83.52) 02/17/20 23 Active confirmed Problem Hypomagnesemia (363784661) Hypomagnesemia (E83.42) 03/09/20 24 Active confirmed Problem Hyperlipidemia (96105699) Hyperlipidemia, unspecified (E78.5) 02/25/20 23 Active confirmed Problem Mixed hyperlipidemia (019782206) Mixed hyperlipidemia (E78.2) 02/13/20 22 Active confirmed Problem Vitamin B deficiency (59993737) Deficiency of other specified B group vitamins (E53.8) 11/22/19 23 Active confirmed Problem 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) Type 2 diabetes mellitus with other diabetic kidney complication (E11.29) 08/07/19 23 Active confirmed Problem Aortic valve disorder (5808628) Moderate aortic stenosis (I35.0) Active confirmed Echo 2023 Problem Aortic valve disorder (5446593) Severe aortic stenosis (I35.0) Active confirmed Problem Grade I diastoli c dysfunction (I51.89) Active confirmed Echo 2023 Problem Cataract (503475542) Cataract of both eyes, unspecified cataract type (H26.9) Active confirmed Problem Polyneuropathy due to type 2 diabetes mellitus (110152769) 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) Active confirmed Problem Allergic rhinitis (07927746) Chronic allergic rhinitis (J30.9) Active confirmed Problem Essential hypertension (80407137) Essential hypertension (I10) Active confirmed Problem Vitamin D deficiency (02181349) Vitamin D deficiency (E55.9) Active confirmed Problem Type II diabetes mellitus without complication (457757087) Type 2 diabetes mellitus without complications (E11.9) Active confirmed Problem Screening for malignant neoplasm of colon (172944217) Encounter for screening for malignant neoplasm of colon (Z12.11) 02/13/20 22 Active confirmed Problem Scoliosis (724073752) Scoliosis, unspecified (M41.9) 08/15/19 22 Active confirmed Problem Gastro-esophageal reflux disease without esophagitis (996206985) Gastro-esophageal reflux disease without esophagitis (K21.9) 02/13/20 22 Active confirmed Problem Ventricular premature depolarization (228109864) Ventricular premature depolarization (I49.3) 06/15/19 24 Active confirmed Vital Signs Heart Rate 92 /min 03/06/2025 Temperature 97.6 degrees Fahrenheit 03/06/2025 Respiratory Rate 16 /min 03/06/2025 Height-cm 168.15 cm 03/06/2025 Blood pressure diastolic 74 mm Hg 03/06/2025 Oximetry 97 % 03/06/2025 Weight-kg 81.65 kg 03/06/2025 Height 66.20 in 03/06/2025 Blood pressure systolic 112 mm Hg 03/06/2025 Weight 180 lbs 03/06/2025 BMI 28.87 kg/m2 03/06/2025 Encounters Encounter Location Date Provider Diagnosis [address] [address] 04/08/2024 Dr. Martha Gifford Allergic rhinitis, unspecified J30.9 ; Cough, unspecified R05.9 ; Other specified symptoms and signs involving the circulatory and respiratory systems R09.89 and Acute prostatitis N41.[address] [address] 09/29/2024 Dr. 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 ; Essential (primary) hypertension I10 ; Vitamin B12 deficiency E53.8 ; Hypomagnesemia E83.42 ; Dizziness R42 ; Chronic allergic rhinitis J30.9 ; Moderate aortic stenosis I35.0 and Grade I diastolic dysfunction I51.[address] [address] 01/05/2025 Juany Castillo Type 2 diabetes mellitus with other diabetic kidney complication E11.29 ; Aortic valve stenosis, etiology of cardiac valve disease unspecified I35.0 ; Essential hypertension I10 ; Mixed hyperlipidemia E78.2 ; Allergic rhinitis, unspecified J30.9 ; Hypomagnesemia E83.42 and Gastro-esophageal reflux disease without esophagitis K21.[address] [address] 03/06/2025 Dr. Martha Gifford Encounter for general adult medical examination with abnormal findings Z00.01 ; DM type 2 with diabetic peripheral neuropathy E11.42 ; Severe aortic stenosis I35.0 ; Type 2 diabetes mellitus with other diabetic kidney complication E11.29 ; Hypomagnesemia E83.42 ; Hypercalcemia E83.52 ; Cataract of both eyes, unspecified cataract type H26.9 ; Gastro-esophageal reflux disease without esophagitis K21.9 and Mixed hyperlipidemia E78.[address] [address] 03/06/2025 Juany Castillo Encounter for immunization Z23 [address] [address] 04/30/2024 Provider Migration [address] [address] 05/01/2024 Provider Migration [address] [address] 09/26/2024 Dr. Martha Gifford Hypomagnesemia E83.42 ; Hyperlipidemia, unspecified E78.5 ; Essential (primary) hypertension I10 ; Type 2 diabetes mellitus without complications E11.9 ; Deficiency of other specified B group vitamins E53.8 and Other intermediate card tender (current) drug therapy Z79.[address] [address] 12/26/2024 Juany Castillo Essential (primary) hypertension I10 ; Gastro-esophageal reflux disease without esophagitis K21.9 ; Mixed hyperlipidemia E78.2 ; Type 2 diabetes mellitus with other diabetic kidney complication E11.29 ; Vitamin B12 deficiency E53.8 and Vitamin D deficiency E55.[address] [address] 12/26/2024 Juany Castillo [address] [address] 03/01/2025 Dr. Martha Gifford Essential (primary) hypertension I10 ; Type 2 diabetes mellitus with other diabetic kidney complication E11.29 ; Mixed hyperlipidemia E78.2 ; Hypomagnesemia E83.42 ; Vitamin B12 deficiency E53.8 and Vitamin D deficiency E55.9 Assessments Encounter Date Diagnosis (ICD Code) Assessment Notes Treatment Notes Treatment Clinical Notes Section Notes 04/08/2024 Allergic rhinitis, unspecified (ICD-10 - J30.9) 04/08/2024 Acute prostatitis (ICD-10 - N41.0) 04/08/2024 Other specified symptoms and signs involving the circulatory and respiratory systems (ICD-10 - R09.89) 04/08/2024 Cough, unspecified (ICD-10 - R05.9) 09/26/2024 Hypomagnesemia (ICD-10 - E83.42) 09/29/2024 Hyperlipidemia, unspecified (ICD-10 - E78.5) 09/29/2024 DM type 2 with diabetic peripheral neuropathy (ICD-10 - E11.42) 12/26/2024 Essential (primary) hypertension (ICD-10 - I10) 01/05/2025 Type 2 diabetes mellitus with other diabetic kidney complication (ICD-10 - E11.29) - Type 2 diabetes mellitus, A1c improved from 7.3 to 7. - Patient has lost 7 lbs since last March. - Continue current Metformin and Ozempic. No changes recommended at this time. - Follow up with primary care as scheduled. 01/05/2025 Aortic valve stenosis, etiology of cardiac valve disease unspecified (ICD-10 - I35.0) -Mod/severe on last echo in 2023. Follows with cardiology every 6 months. Grade 3 murmur noted. Denies any cardiac limitations. Order was faxed for echo in September 2024, and have advised him to call and schedule it at his convenience. 03/01/2025 Essential (primary) hypertension (ICD-10 - I10) 03/06/2025 Encounter for general adult medical examination with abnormal findings (ICD-10 - Z00.01) PHQ-9 done today. 5 mins spent reviewing and discussing answers. 03/06/2025 DM type 2 with diabetic peripheral neuropathy (ICD-10 - E11.42) Diabetes mellitus type 2: - Diabetes mellitus type 2, currently managed with metformin and ozempic; hemoglobin A1c at 7.4% - Continue ozempic - Hold metformin 3-5 days prior to cardiac catheterization per protocol - No insulin required at present - Will continue to monitor glycemic control 03/06/2025 Encounter for immunization (ICD-10 - Z23) 01/05/2025 Essential hypertension (ICD-10 - I10) MEDICATIONS: No change to current medication regimen. Condition Stable.RECOMMENDATI ONS: adherence to a healthy diet and reduction of dietary salt intake. 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 Will continue atorvastatin and Krill oil MANAGEMENT: Condition stable. Continue same treatment plan. RECOMMENDATIONS: Maintain a regular exercise program. Reduce the amount of cholesterol and saturated fat in your diet. (Limiting red meats and dairy)FOLLOWUP: Return to clinic in 3-6 months for recheck. 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 He also uses Spiriva as needed, He said it is for allergies. 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 Magnesium increased from BID to TID and held pantoprazole for a week. Recheck mag level today. 03/01/2025 Vitamin B12 deficiency (ICD-10 - E53.8) 03/06/2025 Hypercalcemia (ICD-10 - E83.52) Hypercalcemia (borderline): - Borderline elevated serum calcium (10.6 mg/dL) - Parathyroid hormone evaluation indicated at next laboratory assessment 03/01/2025 Vitamin D deficiency (ICD-10 - E55.9) 01/05/2025 Gastro-esophageal reflux disease without esophagitis (ICD-10 - K21.9) -With holding pantoprazole he has had some GERD especially over night. Will stop pantoprazole completely and start famotidine. 12/26/2024 Vitamin D deficiency (ICD-10 - E55.9) 09/29/2024 Chronic allergic rhinitis (ICD-10 - J30.9) chronic allergy season, eos are high on CBC, patient reports flairing of allergies. 09/26/2024 Other residential (current) drug therapy (ICD-10 - Z79.899) 03/06/2025 Cataract of both eyes, unspecified cataract type (ICD-10 - H26.9) Cataracts: - Bilateral cataracts diagnosed; recommendation for evaluation in one year - Advised to plan for ophthalmology evaluation for cataracts in one year 09/29/2024 Moderate aortic stenosis (ICD-10 - I35.0) Echo 202303/06/2025 Gastro-esophageal reflux disease without esophagitis (ICD-10 - K21.9) Heartburn/gastroeso phageal reflux disease: - Gastroesophageal reflux symptoms managed with famotidine (Pepcid) - Heartburn improved with elevated bed; no difficulty lying flat - Continue famotidine as needed; no change in therapy recommended 03/06/2025 Mixed hyperlipidemia (ICD-10 - E78.2) continue statin 09/29/2024 Grade I diastolic dysfunction (ICD-10 - I51.89) Echo 202309/29/2024 Other Repeat BMP and Mag in 1 month Low Magnesium - Magnesium level is low at 1.4, which requires treatment. - Increase magnesium oxide to 400 mg twice a day. Prescription for a 90-day supply to be sent to [facility]. Follow-up lab for magnesium and kidney function [...] Follow-up with Dr. Rubalcava after returning from [place] on November 12. Discuss any new symptoms [...] months in office for Diabetes check up 03/06/2025 Other Coronary artery disease evaluation: - Coronary artery disease under evaluation; cardiac catheterization planned to assess for vessel disease and possible stenting - Recommendation to stop metformin 3-5 days prior to procedure due to risk of nephrotoxicity with contrast dye; patient received paperwork with instructions - Will review results of cardiac catheterization to determine need for stenting or further intervention Immunizations: - Immunization status reviewed; up-to-date on tetanus, shingles, pneumonia, RSV, and COVID-19 (last dose June 2024) - Strong recommendation for high-dose influenza vaccine; patient may receive flu shot at drive-through or in clinic - COVID-19 booster offered if desired COPD/asbestos exposure evaluation: - Possible COPD or asthma; history of asbestos exposure - Will review prior records and pulmonary function testing to clarify diagnosis - Consider alternative inhaler therapy if indicated based on pulmonary function results and symptoms Colon polyps/diverticulos is/hemorrhoids: - Prior colonoscopy (June 2022) showed ascending colon polyp, several sub-cm rectal polyps, diverticulosis, and external hemorrhoids - Will obtain and review pathology results from prior colonoscopy; documentation to be updated in chart Plan Of Treatment Next Appt Details Provider Name:Dr. Martha bobby, 03/23/2026 02:30:00 PM, [address] [place], [address], [phone] Insurance Providers Payer Name Payer Address Payer Phone Subscriber Number Group Number Insured Name Patient Relationship to Insured Coverage Start Date Coverage End Date [employer] Ppo [address] [place] [address] [id number] Neer, Leonel Self - patient is the insured Medical [...]
[2025-03-20 12:03] LABS: Hematocrit 43.2 % (42.0-52.0); Hemoglobin 14.1 g/dL (14.0-18.0); Immature Granulocyte Percent A 0.4 % (0-0.5); Lymphocytes Absolute Auto 1.81 K/mm3 (0.9-3.2); Mean Corpuscular HGB Conc 32.6 g/dl (32-36); Mean Corpuscular Hemoglobin 28.8 pg (26-34); Mean Corpuscular Volume 88.3 fl (80-100); Nucleated Red Blood Cells Absolute Auto 0.000 K/mm3 (0.0-0.012); Nucleated Red Blood Cells Perc 0.0 % (0.0-0.2); Platelet Count Result 425 k/mm3 (150-375); Red Blood Count 4.89 M/mm3 (4.6-6.20); White Blood Count 8.0 K/mm3 (4.5-10.0)
[2025-03-20 12:14] LABS: Anion Gap 11 mmol/L (4-12); Blood Urea Nitrogen 22 mg/dL (9-20); Calcium 10.8 mg/dL (8.4-10.2); Carbon Dioxide 23 mmol/L (22-30); Chloride 101 mmol/L (98-107); Estimated CRCL calculation 65 ml/min; Estimated Glomerular Filt Rate > 60; Glucose 168 mg/dL (65-110); Potassium 4.8 mmol/L (3.4-5.0); Sodium 135 mmol/L (137-145)
--- NOTE | 2025-03-20 12:29 | WPDHPUPDATE1 ---
History and Physical Update Update Date/Time: 03/20/25 12:29 History and Physical has been reviewed, including an updated exam of the patient. There are NO changes in the patient's condition. Risks, benefits, and alternatives have been discussed and questions answered. Patient agrees to proceed with procedure.
--- NOTE | 2025-03-20 12:29 | WPDMODSED ---
Moderate Sedation Note-Pt Data Patient Data Allergies Allergy/AdvReac Type Severity Reaction Status Date / Time ezetimibe Allergy Unknown Unknown Verified 03/20/25 11:52 Penicillins Allergy Unknown Unknown Verified 03/20/25 11:52 Home Medications ?Medication ?Instructions ?Recorded ?Confirmed ?Type aspirin 81 mg tablet,delayed 81 mg PO DAILY 07/08/19 03/17/25 History release (Adult Low Dose Aspirin) carvedilol 6.25 mg tablet 6.25 mg PO BID 07/08/19 03/17/25 History fluticasone propionate 50 1 spray intranasal DAILY 07/08/19 03/17/25 History mcg/actuation nasal spray,suspension (Allergy Relief (fluticasone)) glimepiride 2 mg tablet 2 mg PO QAM 07/08/19 03/17/25 History lisinopril 20 mg tablet 20 mg PO DAILY 07/08/19 03/20/25 History metformin 500 mg tablet 1,000 mg PO BID 07/08/19 03/17/25 History niacin 500 mg tablet 500 mg PO DAILY 07/08/19 03/17/25 History omega-3 fatty acids 1,000 mg 2,000 mg PO DAILY 07/08/19 03/17/25 History capsule (Fish Oil Concentrate) simvastatin 20 mg tablet 20 mg PO DAILY 07/08/19 03/17/25 History semaglutide 1 mg/dose (2 mg/1.5 1 mg subcut WEEKLY 07/12/19 03/17/25 History mL) subcutaneous pen injector (Ozempic) magnesium oxide 400 mg (241.3 mg 400 mg PO DAILY #90 tabs 02/18/23 03/17/25 Rx magnesium) tablet Sedation/Anesthesia: No previous sedation/anesthesia problems (including family history). 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[place] artery Diabetes 1.5, managed as type 2 Dyslipidemia Essential hypertension PAF (paroxysmal atrial fibrillation) (03/01/19) Surgical History Surgical History History of appendectomy History of cardiac cath Family History Family History Father Family history of kidney disease Social History Social History Smoking status: Never smoker Substance use type: does not use Living arrangements: with family Spiritual care concerns: No Mod Sed Physical Exam Physical Exam Pre Procedural Exam: Normal: Lungs, Heart Size, Heart Rate and Heart Rhythm Hours since solid foods: 12 Hours since liquid intake: 12 Mallampati Classification: class II Internal Medicine - PN: Obj Da Vital Signs Vital Signs: Vital Signs - 24 hr 03/20/25 11:54 Temperature 36.8 C Respiratory Rate 16 Blood Pressure 134/83 Pulse Oximetry 96 Oxygen Delivery Room Air Labs 03/20/25 11:51 03/20/25 11:51 Labs: Laboratory Results - last 24 hr 03/20/25 11:51 WBC 8.0 RBC 4.89 Hgb 14.1 Hct 43.2 MCV 88.3 MCH 28.8 MCHC 32.6 RDW 12.4 Plt Count 425 H MPV 10.2 Immature Gran % (Auto) 0.4 Neut % (Auto) 60.8 Lymph % (Auto) 22.7 [place] % (Auto) 6.0 Eos % (Auto) 8.7 H Baso % (Auto) 1.4 H Lymph # (Auto) 1.81 [place] # (Auto) 0.5 Eos # (Auto) 0.7 H Baso # (Auto) 0.1 Abs Immat Gran (auto) 0.03 Absolute Neuts (auto) 4.8 Absolute Nucleated RBC 0.000 Nucleated RBC % 0.0 Sodium 135 L Potassium 4.8 Chloride 101 Carbon Dioxide 23 Anion Gap 11 BUN 22 H Creatinine 0.88 Estim Creat Clear Calc 65 Estimated GFR > 60 Glucose 168 H Calcium 10.8 H ASA Classification/Sedation ASA Classification/Sedation ASA Class: III Emergent: No Risks: Risks, benefits and alternatives explained and patient/family accepted plan for sedation. Patient re-evaluated immediately prior to sedation.
--- NOTE | 2025-03-20 13:11 | P.PCNCC_ITS ---
Cardiac Cath Procedure Note Date of procedure:: 03/20/25 Performing physician:: CATHETERIZATION LABORATORY REPORT Procedure Date: 03/20/2025 Referring Physician: Dr. Love Anesthesia: Versed and Fentanyl were ordered and given in my presence at 1246, procedure ended at 1307. Supervision of nurse monitored moderate sedation with 2mg Versed and 50mcg Fentanyl was provided for 21 minutes. Pre-op Diagnosis: Severe aortic stenosis Post-op Diagnosis: Severe aortic stenosis Procedure(s): Left heart catheterization with coronary angiography Right heart catheterization Access Site: Right radial artery Right brachial vein Brief History and Clinical Indications: All risks, benefits and alternatives to left heart catheterization with or without percutaneous coronary intervention was discussed at length with the patient. Risk of complications including but not limited to bleeding, infection, arrhythmia, stroke, worsening kidney function, blood loss, groin hematoma, limb loss, emergency coronary artery bypass grafting, and even were discussed with the patient and all questions were answered. The patient understood and wished to proceed. Time out called, patient name, date of , medical record number, allergies, procedure performed, identify Childcare Administrator, patient and staff member concurred with accurate data, procedure carried on. Findings: LEFT HEART CATHETERIZATION FINDINGS: 1. Left main: The left main coronary artery is widely patent without any significant obstructive disease. 2. Left anterior descending: The LAD in its midbody has a 40-50% stenosis. The remainder of the vessel and its branches have diffuse 10-20% stenosis. 3. Left circumflex: The left circumflex artery gives off 2 OM branches. OM1 is small and insignificant. OM2 has 30-40% calcific stenosis. 4. Right coronary artery: The RCA is a large dominant vessel with a 90% proximal stenosis. The proximal RPDA has 50% stenosis 5. Left ventricle: The left ventricle was not accessed due to known severe aortic stenosis. 6. Opening AO pressure 140/76 and closing AO pressure 114/82 RIGHT HEART CATHETERIZATION FINDINGS: Pressures (mmHg): RA: 10 RV: 82/8 PA: 32/18 PCWP: 11 (v 12) Saturations (%): PA: 60.8 Arterial: 91 CO/CI: Jose: 4.2/2.2 Description of Procedure: Informed consent signed and placed in the chart. Patient transferred to forestry laborer room. Prepped and draped in usual sterile fashion. 2% lidocaine injected subcutaneously in right brachial area. Right brachial vein was accessed using micropuncture technique under ultrasound guidance. 7F sheath placed. 7F [place] catheter was advanced into the right side of the heart chambers and pressures were measured. Oximetry data was obtained and cardiac output/index was calculated. Informed consent signed and placed in the chart. Patient transferred to forestry laborer room. Prepped and draped in usual sterile fashion. 2% lidocaine injected subcutaneously in right wrist area. 22-gauge venipuncture catheter used to access the right radial artery with the Seldinger technique. 6-FR slender sheath placed in right radial artery. Verapamil 2.5mg and Heparin 5000U was given intraarterial through the sheath. J wire advanced under fluoroscopy. 5F TIG diagnostic catheter engaged Left Main Coronary Artery and Right Coronary Artery. Multiple orthogonal angiogram obtained and reviewed Hemostasis was achieved by application of TR band over the right wrist and manual pressure was applied to achieve hemostasis over the right brachial vein. Assessment: Severe aortic stenosis Single-vessel obstructive CAD Normal right heart filling pressures Post Operative Condition: Stable No significant blood loss Disposition: Home Plan: The above findings were discussed with the referring physician. Continue aggressive medical therapy and risk factor modification. CTS consultation for severe Aortic Stenosis Jitendra Burrell Interventional Cardiology
[2025-03-20] MEDS: SODIUM CHLORIDE 0.9% IV 1,000 ML 125 ML IV CONT (14:32)
== END 2025-03-20 18:33 | disposition home or self-care (01) ==
PROVIDERS: PCP Family Medicine; Visit Provider Internal Medicine
PROC: 4A023N8 Measurement of Cardiac Sampling and Pressure, Bilateral, Percutaneous Approach (ICD-10-PCS; CPT 93453; principal; 2025-03-20 13:00)
DX: I35.0 Nonrheumatic aortic (valve) stenosis (principal); I25.10 Atherosclerotic heart disease of native coronary artery without angina pectoris; I48.0 Paroxysmal atrial fibrillation; E11.9 Type 2 diabetes mellitus without complications; I10 Essential (primary) hypertension; E78.5 Hyperlipidemia, unspecified; Z79.82 Long term (current) use of aspirin; Z79.84 Long term (current) use of oral hypoglycemic drugs; Z79.85 Long-term (current) use of injectable non-insulin antidiabetic drugs; Z98.890 Other specified postprocedural states; Z98.61 Coronary angioplasty status
CPT/HCPCS: 36415; 80048; 85025; 93460; C1769; C1887; C1894; J1644; J2003; J2250; J2305; J3010; J7040